=== PATIENT | female | born 2000 | race Hispanic/Latino ===

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

== ENCOUNTER 2019-04-08 17:14 | Emergency (ER) | payer MEDICAID, OTHER ==
[2019-04-08] MEDS ORDERED: ACETAMINOPHEN EXTRA STRENGTH 500 MG TABLET ONE (17:27)
== END 2019-04-08 18:32 | disposition home or self-care (01) ==
LOC: EDH 17:14
DX: S93.692A Other sprain of left foot, initial encounter (principal); J45.909 Unspecified asthma, uncomplicated; X50.0XXA Overexertion from strenuous movement or load, initial encounter; Y93.89 Activity, other specified; Y92.488 Other paved roadways as the place of occurrence of the external cause; Y99.8 Other external cause status
CPT/HCPCS: 73630

== ENCOUNTER 2024-05-09 20:13 | Emergency (ER) | payer MEDICAID ==
[~2024-05-09] VITALS: Ht 152.4 cm; Wt 87.7 kg
[2024-05-09] MEDS ORDERED: DiphenhydrAMINE HCL 25 MG CAPSULE PO STA (20:32)
[2024-05-09] MEDS: FAMOTIDINE 20MG VIAL IV ONE (20:56)
[2024-05-09] MEDS: DiphenhydrAMINE HCL 50 MG/ML VIAL IV ONE (20:57)
[2024-05-09 21:04] LABS: BASOPHILS # (AUTO) 0.01 K/uL (0.00-0.20); BASOPHILS % (AUTO) 0.2 % (0.0-5.0); EOSINOPHILS % (AUTO) 1.7 % (0.0-8.0); IMMATURE GRANULOCYTE ABSOLUTE 0.02 K/uL (0-1); LYMPHOCYTES # (AUTO) 1.7 K/uL (1.0-4.8); LYMPHOCYTES % (AUTO) 28.8 % (21.0-51.0); MEAN CORPUSCULAR HEMOGLOBIN 30.8 pg (27.0-33.0); MEAN CORPUSCULAR HGB CONC 33.3 g/dL (32.0-36.0); MEAN CORPUSCULAR VOLUME 92.6 fL (79-99); MONOCYTES # (AUTO) 0.5 K/uL (0.1-1.0); MONOCYTES % (AUTO) 8.3 % (3.0-13.0); NEUTROPHILS # (AUTO) 3.6 K/uL (1.8-7.7); NEUTROPHILS % (AUTO) 60.7 % (40.0-77.0); PLATELET COUNT (AUTO) 227 K/uL (130-400); RED BLOOD CELL COUNT(AUTO) 4.32 MIL/uL (4.00-5.50); RED CELL DISTRIBUTION WIDTH 11.9 % (11.0-15.5); WHITE BLOOD COUNT (AUTO) 5.9 K/uL (4.8-10.8)
[2024-05-09 21:12] LABS: CREATININE 0.8 mg/dL (0.5-1.0); POTASSIUM 3.8 mmol/L (3.5-5.1)
[2024-05-09 21:20] LABS: ALBUMIN 3.5 g/dL (3.5-5.0); BILIRUBIN,DIRECT 0.1 mg/dL (0.0-0.3); BILIRUBIN,TOTAL 0.2 mg/dL (0.2-1.0); TOTAL PROTEIN, SERUM 7.4 g/dL (6.0-8.3)
[2024-05-09] MEDS ORDERED: DIPH50 PO (21:35)
--- NOTE | 2024-05-09 21:37 | ERN ---
ED Note History of Present Illness Stated Complaint: BLISTERS TO HANDS AND MOUTH Chief Complaint: Skin Rash/Abscess Time Seen by MD: 20:16 Time Seen by Midlevel: 20:19 Dictation: 23-year-old female with past medical history of asthma and leukemia in when she was in high school coming in with complaints of itchy rash to the palms of her hand and soles of her foot along with petechiae along the mouth. Also complaining of throat pain. Patient denies being recently sick, denies any fever, nausea, vomiting, body aches. States her liver month old baby also has a same rash to his calves. States she has been applying Aquaphor in his seen some improvement on her baby. Allergies: Coded Allergies: No Known Allergies (Unverified Allergy, Unknown, 05/09/24) Past Medical History Past Medical History: Asthma Surgical History: None LMP: May 05, 2024 Review of System Dictation Constitutional: Negative for fever,chills, and weight loss Eyes: Negative for injury, pain,redness, and discharge ENT: Negative for injury,pain or swelling Cardiovascular: Negative for chest pain, palpitations, and edema Respiratory: Negative for shortness of breath, cough, and wheezing, Abdomen/GI: Negative for abdominal pain, nausea, vomiting, diarrhea, and constipation Back: Negative for injury and pain : Negative for injury, bleeding and discharge MS/Extremity: Negative for injury and deformity Skin: Rash to palms of bilateral hands and also foot along with lesions in the mouth Neuro: Negative for headache, weakness, numbness, tingling, and seizure Psych: Negative for suicide ideation, homicidal ideation, and hallucinations Review of Systems: was completed Initial Vital Sign VS Vital Signs Date Time Temp Pulse Resp B/P (MAP) Pulse Ox O2 Delivery O2 Flow Rate FiO2 05/09/24 20:14 98.8 82 18 121/86 99 Room Air Physical Exam Dictation General: awake, alert, NAD Head/Face: Normocephalic, atraumatic Eyes: PERRL, EOMI, vision at baseline ENT: oral cavity clear, TMs clear, no signs of infection Neck: Trachea midline, supple, no nuchal rigidity Cardiovascular: RRR, normal S1/S2, No MRGs, no JVD Respiratory: CTAB, no respiratory distress, No rales or wheezes Abdomen: Soft, non-tender, non-distended, normal bowel sounds, no guarding or rebound. Skin: Small, slight red spots on the palms, is soles of foot. MS/Extremity: Pulses equal, no cyanosis, neurovascular intact, FROM Neuro: COAx4, GCS 15, strength 5/5, CN 2-12 intact, normal cerebellar exam, normal gait, Psych: Normal behavior, mood, and affect normal Results (Laboratory/Radiology) Laboratory/Radiology Laboratory Tests Test 05/09/24 20:33 05/09/24 20:53 Group A Streptococcus Rapid negative (NEGATIVE) White Blood Count 5.9 K/uL (4.8-10.8) Red Blood Count 4.32 MIL/uL (4.00-5.50) Hemoglobin 13.3 g/dL (12.0-16.0) Hematocrit 40.0 % (36-48) Mean Corpuscular Volume 92.6 fL (79-99) Mean Corpuscular Hemoglobin 30.8 pg (27.0-33.0) Mean Corpuscular Hemoglobin Concent 33.3 g/dL (32.0-36.0) Red Cell Distribution Width 11.9 % (11.0-15.5) Platelet Count 227 K/uL (130-400) Mean Platelet Volume 10.3 fL (7.5-10.5) Immature Granulocyte % (Auto) 0.3 % (0-1) Neutrophils (%) (Auto) 60.7 % (40.0-77.0) Lymphocytes (%) (Auto) 28.8 % (21.0-51.0) Monocytes (%) (Auto) 8.3 % (3.0-13.0) Eosinophils (%) (Auto) 1.7 % (0.0-8.0) Basophils (%) (Auto) 0.2 % (0.0-5.0) Neutrophils # (Auto) 3.6 K/uL (1.8-7.7) Lymphocytes # (Auto) 1.7 K/uL (1.0-4.8) Monocytes # (Auto) 0.5 K/uL (0.1-1.0) Eosinophils # (Auto) 0.10 K/uL (0.00-0.70) Basophils # (Auto) 0.01 K/uL (0.00-0.20) Absolute Immature Granulocyte (auto 0.02 K/uL (0-1) Nucleated Red Blood Cells 0.0 % (0.0-0.19) Sodium Level 138 mmol/L (136-145) Potassium Level 3.8 mmol/L (3.5-5.1) Chloride Level 102 mmol/L (101-111) Carbon Dioxide Level 30 mmol/L (21-32) Blood Urea Nitrogen 15 mg/dL (7-18) Creatinine 0.8 mg/dL (0.5-1.0) Glomerular Filtration Rate Calc 105 mL/min (>90) Random Glucose 100 mg/dL (70-105) Total Calcium 8.7 mg/dL (8.5-10.1) Total Bilirubin 0.2 mg/dL (0.2-1.0) Direct Bilirubin 0.1 mg/dL (0.0-0.3) Aspartate Amino Transf (AST/SGOT) 18 U/L (10-37) Alanine Aminotransferase (ALT/SGPT) 27 U/L (12-78) Alkaline Phosphatase 86 U/L (50-136) Total Protein 7.4 g/dL (6.0-8.3) Albumin 3.5 g/dL (3.5-5.0) Labs Reviewed?: Yes ED Course ED Course Orders Procedure Category Date Status Time Rapid (Group A Strep) LAB 05/09/24 Complete 20:29 Diphenhydramine Hcl PHA 05/09/24 Complete (Benadryl Cap) 20:32 Cbc With Differential LAB 05/09/24 Complete 20:45 Basic Metabolic Panel LAB 05/09/24 Complete 20:45 Diphenhydramine Hcl PHA 05/09/24 Complete (Benadryl Inj) 21:00 Famotidine 20mg Vial PHA 05/09/24 Complete (Pepcid 20mg Vial) 21:00 Hepatic Function Panel LAB 05/09/24 Complete 20:53 Current Medications Medications (Trade) Dose Ordered Sig/Darin Route PRN Reason Start Time Stop Time Status Last Admin Dose Admin Diphenhydramine HCl (BENAdryl CAP) 50 mg ONCE STAT PO 05/09/24 20:32 05/09/24 20:49 DC Diphenhydramine HCl (BENAdryl INJ) 25 mg ONCE ONCE IV 05/09/24 21:00 05/09/24 21:01 DC 05/09/24 20:57 Famotidine (Pepcid 20mg Vial) 20 mg ONCE ONCE IV 05/09/24 21:00 05/09/24 21:01 DC 05/09/24 20:56 Vital Signs Date Time Temp Pulse Resp B/P (MAP) Pulse Ox O2 Delivery O2 Flow Rate FiO2 05/09/24 20:14 98.8 82 18 121/86 99 Room Air Medical Decision Making MDM MDM: 23-year-old female with past medical history of asthma and leukemia in when she was in high school coming in with complaints of itchy rash to the palms of her hand and soles of her foot along with petechiae along the mouth. Also complaining of throat pain. Patient denies being recently sick, denies any fever, nausea, vomiting, body aches. States her liver month old baby also has a same rash to his calves. States she has been applying Aquaphor in his seen some improvement on her baby. After Benadryl and Pepcid, patient states feels better. We will discharge patient with Benadryl and follow up with PCP in 1-2 days.. Differential diagnosis: Jray-[id number]-[id number] disease, scabies, viral rash, t hrombocytopenia Rationale: Tests considered and ordered secondary to shared decision making include: Previous outside records reviewed: Old ER visits. Risk of complication and/or morbidity or mortality of patient management: None Medications-Per medication reconciliation Need for hospitalization: Patient does not meet criteria for hospitalization. Need for emergency major/minor surgery: No There are no social concerns with this patient. Prescription drug management Prescriptions will include symptomatic care Patient's prior external medical records from other ER visits were reviewed by me as indicated. Prior testing and results from previous visits were reviewed. Prior tests were taken into account with medical decision making and resource utilization, independent historian/historians were used to obtain complete medical history. I independently interpreted the test that were performed, results were reviewed by me and considered findings on radiology if ordered. Medical management and examination interpretation discussions were had by me with other qualified healthcare professionals as indicated for the patient's care. DX & DISP Disposition: Discharge Departure Impression: Primary Impression: Hand, foot and mouth disease Condition: Stable Scripts Diphenhydramine HCl (Benadryl) 50 Mg Cap 50 MG PO Q6H for itching/rash for 5 Days, #20 CAP 0 Refills Prov: WEST,TABITHA JBOSS DEVELOPER 05/09/24 Referrals: SASHA FRANK DO (PCP) Time of Disposition: 21:35 I have reviewed the case, and I agree with, Diagnosis and Plan TABITHA WEST NP May 09, 2024 21:37
[2024-05-09 21:44] VITALS: BP 122/83; PULSE 80; RESP 18; TEMP 98.5; O2SAT 99
== END 2024-05-09 21:45 | disposition home or self-care (01) ==
LOC: EDH 20:13
DX: B08.4 Enteroviral vesicular stomatitis with exanthem (principal); J45.909 Unspecified asthma, uncomplicated
CPT/HCPCS: 99284; 96374; 96375; 80076; 80048; 85025; 87880; 36415; J1200; J3490

== ENCOUNTER 2025-01-04 22:07 | Emergency (ER) | payer SELFPAY ==
[~2025-01-04] VITALS: Ht 152.4 cm; Wt 76.7 kg
[~2025-01-04 22:07] MED LIST: DIPH50 PO
--- NOTE | 2025-01-04 22:10 | NUR ---
UA CUP PROVIDED
[2025-01-04 22:31] VITALS: BP 130/80; PULSE 90; RESP 16; TEMP 98.1; O2SAT 98
[2025-01-04 22:40] LABS: ADD UA MICROSCOPIC YES; APPEARANCE,URINE CLOUDY (CLEAR); GLUCOSE, URINE (UA) NEGATIVE (NEGATIVE); LEUKOCYTE ESTERASE ,URINE 500 Leu/uL (NEGATIVE); NITRATE,URINE NEGATIVE (NEGATIVE); OCCULT BLOOD,URINE SMALL (NEGATIVE)
[2025-01-04 22:41] LABS: HCG,QUALITATIVE URINE NEGATIVE (NEGATIVE)
[2025-01-04 22:43] LABS: SQUAMOUS EPITHELIAL CELL,UR MOD /HPF (0-2)
--- NOTE | 2025-01-04 23:08 | ERN ---
ED Note History of Present Illness Stated Complaint: VAGINAL WHITE DISCHARGE, ITCHING Chief Complaint: Vaginal Problems/Bleeding Time Seen by MD: 22:18 Time Seen by Midlevel: 22:18 Dictation: The patient is a 24-year-old female with a history of asthma who presents to the emergency department with white clumpy non odorous vaginal discharge associated with burning urination and itchiness. Patient denies any fevers, nausea vomiting or diarrhea. Allergies: Coded Allergies: No Known Allergies (Unverified Allergy, Unknown, 05/09/24) Home Meds Active Scripts Diphenhydramine HCl (Benadryl) 50 Mg Cap, 50 MG PO Q6H for itching/rash for 5 Days, #20 CAP 0 Refills Prov:TABITHA WEST NP 05/09/24 Past Medical History Past Medical History: No Pertinent History, Asthma Surgical History: None RN Note Reviewed/Agreed w/PFSH: Yes Review of System Dictation Constitutional: Negative for fever,chills, and weight loss Eyes: Negative for injury, pain,redness, and discharge ENT: Negative for injury,pain or swelling Cardiovascular: Negative for chest pain, palpitations, and edema Respiratory: Negative for shortness of breath, cough, and wheezing, Abdomen/GI: Negative for abdominal pain, nausea, vomiting, diarrhea, and constipation Back: Negative for injury and pain : Positive for vaginal discharge, burning urination MS/Extremity: Negative for injury and deformity Skin: Negative for rash, and discoloration Neuro: Negative for headache, weakness, numbness, tingling, and seizure Psych: Negative for suicide ideation, homicidal ideation, and hallucinations Initial Vital Sign VS Vital Signs Date Time Temp Pulse Resp B/P (MAP) Pulse Ox O2 Delivery O2 Flow Rate FiO2 01/04/25 22:09 98.1 92 18 130/81 99 Room Air 01/04/25 22:31 0 21 Physical Exam Dictation Vital Signs reviewed General Appearance: Alert, oriented x 3, no acute distress, well developed, nourished. Head and Face: non-traumatic. Eyes: PERRL, pink conjunctivas, eyelid no trauma, anterior chamber with arcus senilis. Ears: Pinnas intact and no signs of trauma or erythema ear canals clear and no discharge TM no erythema Nose: No discharge, no bleeding. Oropharynx: Mouth normal, tongue pink. pharynx clear,no erythema, tonsils no exudates, no abscesses noted, mucous membrane moist Neck: Supple, non-tender, no thyromegaly, no masses, no JVD, no bruits Breast:Deferred Chest:No tenderness, no crepitus, no paradoxical movement, no retractions Lungs:Clear, well-ventilated, symmetric, no rales, no wheezing, no rhonchi, no stridor, good breath sounds bilaterally Heart: Regular rate, regular rhythm, no murmur, no gallops Vascular: no peripheral edema, Abdomen: Soft, positive bowel sounds, nondistended, no guarding, nontender, no rebound, no masses no hepatomegaly, no splenomegaly, no Pillai's sign, no hernias. Rectal: Deferred Genital: Deferred Neurological: Normal speech, motor function intact, sensory function intact Musculoskeletal: Neck nontender, full range of motion, back nontender, full range of motion, Extremities: nontender, full range of motion Skin: Color pink, dry, no turgor, no rash, no lacerations, no abrasions, no contusions. Lymphatic: Deferred Results (Laboratory/Radiology) Laboratory/Radiology Laboratory Tests Test 01/04/25 22:30 Urine Color YELLOW (YELLOW) Urine Appearance CLOUDY (CLEAR) H Urine pH 5.5 (5.0-8.0) Urine Specific [place] 1.029 (1.001-1.031) Urine Protein 30 mg/dL (NEGATIVE) H Urine Glucose (UA) NEGATIVE mg/dL (NEGATIVE) Urine Ketones NEGATIVE mg/dL (NEGATIVE) Urine Occult Blood SMALL (NEGATIVE) H Urine Nitrate NEGATIVE (NEGATIVE) Urine Bilirubin NEGATIVE mg/dL (NEGATIVE) Urine Urobilinogen 0.2 mg/dL (0.2-1.0) Urine Leukocyte Esterase 500 Vidhya/uL (NEGATIVE) H Urine RBC 26-50 /HPF (0-1) H Urine WBC TNTC /HPF (0-1) H Urine Squamous Epithelial Cells MOD /HPF (0-2) Urine Bacteria RARE /HPF (None Seen) Urine HCG, Qualitative NEGATIVE (NEGATIVE) Labs Reviewed?: Yes ED Course ED Course Orders Procedure Category Date Status Time Urinalysis Profile LAB 01/04/25 Complete 22:25 ,Urine Test LAB 01/04/25 Complete 22:25 Culture Urine COCO 01/04/25 In Process 22:40 Ceftriaxone 1g Vial PHA 01/04/25 Complete (Rocephine 1g Inj) 23:00 Current Medications Medications (Trade) Dose Ordered Sig/Darin Route PRN Reason Start Time Stop Time Status Last Admin Dose Admin Ceftriaxone Sodium (ROCEphine 1G INJ) 1 gm ONCE ONCE IM 01/04/25 23:00 01/04/25 23:01 DC 01/04/25 22:59 Vital Signs Date Time Temp Pulse Resp B/P (MAP) Pulse Ox O2 Delivery O2 Flow Rate FiO2 01/04/25 22:31 98.1 90 16 130/80 98 Room Air* 0 21 01/04/25 22:09 98.1 92 18 130/81 99 Room Air Medical Decision Making MDM The patient is a 24-year-old female with a history of asthma who presents to the emergency department with white clumpy non odorous vaginal discharge associated with burning urination and itchiness. Patient denies any fevers, nausea vomiting or diarrhea. Urinalysis positive for leukocyte esterase. Patient will be received a dose of Rocephin in ER. Patient with white non odorous clumpy discharge consistent with Jayda vulvovaginitis. We will treat patient. On physical exam patient is in no acute distress, nontoxic appearance Differential diagnosis: UTI, yeast infection, Need for hospitalization: Patient does not meet criteria for hospitalization. There are no social concerns with this patient. DX & DISP Disposition: Discharge Departure Impression: Primary Impression: Vaginal yeast infection Additional Impression: UTI (urinary tract infection) Condition: Stable Scripts Nitrofurantoin Monohyd/M-Cryst (Macrobid 100 mg Capsule) 100 Mg Capsule 1 CAP PO BID for 5 Days, #10 CAP 0 Refills Prov: GIULIANA AKERS LPTA 01/04/25 Miconazole Nitrate (Monistat 3 Vag Supp) 200 Mg Supp 200 MG VG DAILY for 3 Days, #3 SUPP Prov: GIULIANA AKERS LPTA 01/04/25 Additional Instructions: Please take your medications as prescribed. Follow up with your primary doctor in 1-2 days. If anything worsens please return to ER. FOLLOW-UP WITH PRIMARY CARE PROVIDER IN 1 TO 2 DAYS. TAKE MEDICATIONS DIRECTED HERE IN THE EMERGENCY ROOM. OKAY TO CONTINUE HOME MEDICATIONS UNLESS OTHERWISE DISCUSSED DURING YOUR VISIT IN THE EMERGENCY ROOM TODAY. RETURN TO YOUR NEAREST EMERGENCY ROOM IF SYMPTOMS WORSEN OR IF THERE IS NO IMPROVEMENT. CALL 911 IF YOU NEED IMMEDIATE ASSISTANCE. TAKE TYLENOL [id number] NE EDED AND IF NO CONTRAINDICATIONS ARE PRESENT. INCREASE ORAL HYDRATION. A WOUND CULTURE OR URINE CULTURE WAS ORDERED HERE IN THE EMERGENCY ROOM DEPARTMENT PLEASE FOLLOW-UP WITH PRIMARY CARE PROVIDER AND ADVISE THEM TO GET REPEAT PORTS FROM OUR FACILITY. IF YOU HAD ANY KAREN WRAP/SPLINTS THAT WERE APPLIED HERE, PLEASE DO NOT REMOVE THEM UNTIL YOU SEE YOUR PRIMARY CARE OR SPECIALTY. Referrals: JACK MCFADDEN (PCP) Time of Disposition: 23:10 I have reviewed the case, and I agree with, Diagnosis and Plan GIULIANA AKERS [facility] Jan 04, 2025 23:08
[2025-01-04] MEDS ORDERED: MICO200S VG (23:14)
[2025-01-04] MEDS ORDERED: NITR100C4 PO (23:14)
== END 2025-01-04 23:24 | disposition home or self-care (01) ==
LOC: EDH 22:07
DX: B37.31 Acute candidiasis of vulva and vagina (principal); N39.0 Urinary tract infection, site not specified; Z79.899 Other long term (current) drug therapy
CPT/HCPCS: 99283; 87086 ×2; 87186; 81001; 81025; 96372; J0696

== ENCOUNTER 2025-03-20 00:59 | Emergency (ER) | payer SELFPAY ==
[~2025-03-20] VITALS: Ht 152.4 cm; Wt 79.4 kg
[~2025-03-20 00:59] MED LIST changes: -DIPH50 PO; +DIPH50CA38 PO; +MICO200S VG; +NITR100C4 PO
--- NOTE | 2025-03-20 01:28 | NUR ---
PT CARE ASSUMED AT THIS TIME
--- NOTE | 2025-03-20 01:29 | ERN ---
ED Note History of Present Illness Stated Complaint: C/O BACK PAIN WITH CP X 2 DAYS Chief Complaint: Back Pain-No Injury Time Seen by MD: 01:16 Dictation: This is a 24-year-old obese female who presented to the emergency room with complaints of epigastric pain associated with nausea and when the pain is very severe she also reported vomitings. All these have been going on for about 3 days so far she denied any hematemesis or melena she also reported some loose stools and stated that she had 6 loose stools today. No other family members are sick. No fever chills or rigors She describes that the pain starts in the substernal epigastric area and radiates all the way to the back. She does give a history of burping but denied any sour eructations. Temperature 97.1 pulse 71 respirations 20 blood pressure 141/84 with a pulse oximetry of 100% on room air Allergies: Coded Allergies: No Known Allergies (Unverified Allergy, Unknown, 05/09/24) Home Meds Active Scripts Nitrofurantoin Macrocrystal (Nitrofurantoin) 100 Mg Capsule, 1 CAP PO BID for 7 Days, #14 CAP 0 Refills Prov:BONNY HUBER MD 03/20/25 Nitrofurantoin Monohyd/M-Cryst (Macrobid 100 mg Capsule) 100 Mg Capsule, 1 CAP PO BID for 5 Days, #10 CAP 0 Refills Prov:GIULIANA AKERS [facility] 01/04/25 Miconazole Nitrate (Monistat 3 Vag Supp) 200 Mg Supp, 200 MG VG DAILY for 3 Days, #3 SUPP Prov:GIULIANA AKERS [facility] 01/04/25 Diphenhydramine HCl (Benadryl) 50 Mg Cap, 50 MG PO Q6H for itching/rash for 5 Days, #20 CAP 0 Refills Prov:TABITHA WEST [facility] 05/09/24 Past Medical History Past Medical History: Asthma Surgical History: None Family History: Negative Social History: Negative RN Note Reviewed/Agreed w/PFSH: Yes Review of System Dictation Constitutional: Negative for fever,chills, and weight loss Eyes: Negative for injury, pain,redness, and discharge ENT: Negative for injury,pain or swelling Cardiovascular: Negative for chest pain, palpitations, and edema Respiratory: Negative for shortness of breath, cough, and wheezing, Abdomen/GI: Positive for epigastric abdominal pain, nausea, vomiting, diarrhea, Back: Negative for injury and pain : Negative for injury, bleeding and discharge MS/Extremity: Negative for injury and deformity Skin: Negative for rash, and discoloration Neuro: Negative for headache, weakness, numbness, tingling, and seizure Psych: Negative for suicide ideation, homicidal ideation, and hallucinations Initial Vital Sign VS Vital Signs Date Time Temp Pulse Resp B/P (MAP) Pulse Ox O2 Delivery O2 Flow Rate FiO2 03/20/25 01:01 97.2 71 20 141/84 100 Room Air 03/20/25 01:29 0 21 Physical Exam Dictation General: awake, alert, NAD obese female Head/Face: Normocephalic, atraumatic Eyes: PERRL, EOMI, vision at baseline ENT: oral cavity clear, TMs clear, no signs of infection Neck: Trachea midline, supple, no nuchal rigidity Cardiovascular: RRR, normal S1/S2, No MRGs, no JVD Respiratory: CTAB, no respiratory distress, No rales or wheezes Abdomen: Soft, mild tenderness in the epigastric area, non-distended, normal bowel sounds, no guarding or rebound. Skin: Warm, dry, normal turgor, no rash MS/Extremity: Pulses equal, no cyanosis, neurovascular intact, FROM Neuro: COAx4, GCS 15, strength 5/5, CN 2-12 intact, normal cerebellar exam, normal gait, Psych: Normal behavior, mood, and affect normal Extremities-trace edema without any palpable cords, Homans sign is negative Results (Laboratory/Radiology) Laboratory/Radiology Laboratory Tests Test 03/20/25 02:05 Urine Color LIGHT-YELLOW (YELLOW) Urine Appearance CLOUDY (CLEAR) H Urine pH 6.0 (5.0-8.0) Urine Specific [place] 1.030 (1.001-1.031) Urine Protein NEGATIVE mg/dL (NEGATIVE) Urine Glucose (UA) NEGATIVE mg/dL (NEGATIVE) Urine Ketones NEGATIVE mg/dL (NEGATIVE) Urine Occult Blood NEGATIVE (NEGATIVE) Urine Nitrate NEGATIVE (NEGATIVE) Urine Bilirubin NEGATIVE mg/dL (NEGATIVE) Urine Urobilinogen 0.2 mg/dL (0.2-1.0) Urine Leukocyte Esterase 500 Vidhya/uL (NEGATIVE) H Urine RBC 2-5 /HPF (0-1) H Urine WBC 11-25 /HPF (0-1) H Urine Squamous Epithelial Cells MANY /HPF (0-2) Urine Bacteria MOD /HPF (None Seen) Urine HCG, Qualitative NEGATIVE (NEGATIVE) Labs Reviewed?: Yes ED Course ED Course Orders Procedure Category Date Status Time 12 Lead Ekg Tracing- EKG 03/20/25 Complete Technical 01:33 Ondansetron 4mg Inj PHA 03/20/25 Complete (Zofran 4mg Inj) 02:00 Chest 1vw RAD 03/20/25 Taken 01:33 Morphine 4mg Syg PHA 03/20/25 Complete (Morphine 4mg Syg) 02:00 Urinalysis Profile LAB 03/20/25 Complete 01:46 ,Urine Test LAB 03/20/25 Complete 01:46 Culture Urine COCO 03/20/25 In Process 02:20 Current Medications Medications (Trade) Dose Ordered Sig/Darin Route PRN Reason Start Time Stop Time Status Last Admin Dose Admin Morphine Sulfate (morPHINE 4MG SYG) 2 mg ONCE ONCE IVP 03/20/25 02:00 03/20/25 02:01 DC 03/20/25 02:11 Ondansetron HCl (zoFRAN 4MG INJ) 4 mg ONCE ONCE IVP 03/20/25 02:00 03/20/25 02:01 DC 03/20/25 02:11 Vital Signs Date Time Temp Pulse Resp B/P (MAP) Pulse Ox O2 Delivery O2 Flow Rate FiO2 03/20/25 01:29 97.9 84 17 148/82 100 Room Air* 0 21 03/20/25 01:01 97.2 71 20 141/84 100 Room Air We will perform diagnostic labs, advanced imaging and administer medications according to the patient's complaint. Once the results are available, will review and personally interpreted the labs to rule out any acute life-thre atening emergency the trach require immediate intervention and treatment. I will then re-evaluate the patient after treatment and diagnostic exams have return to determine whether the patient requires any further testing, can safely be discharged home or need further admission to hospital for additional treatment and evaluation. Medical Decision Making MDM Differential diagnosis: Gastritis, esophagitis, gastroenteritis, pancreatitis, colitis, cholecystitis This is a 24-year-old obese female who presented to the emergency room with complaints of epigastric pain associated with nausea and when the pain is very severe she also reported vomitings. All these have been going on for about 3 days so far she denied any hematemesis or melena she also reported some loose stools and stated that she had 6 loose stools today. No other family members are sick. No fever chills or rigors She describes that the pain starts in the substernal epigastric area and radiates all the way to the back. She does give a history of burping but denied any sour eructations. Temperature 97.1 pulse 71 respirations 20 blood pressure 141/84 with a pulse oximetry of 100% on room air 2:30 a.m. urinalysis showed increased leuko esterase and positive WBCs suggestive of a UTI. Urine test negative. Chest x-ray pending 2:55 a.m. chest x-ray reviewed. No acute infiltrate noted no pneumothorax. No mediastinal widening. On reassessment patient admits to feeling significantly improved. I updated her on the test results as well as x-ray results and possible UTI and a trial of antibiotic as outpatient. Rationale: Tests considered and ordered secondary to shared decision making include: Chest x-ray urinalysis and urine test Previous outside records reviewed: Old ER visits. Risk of complication and/or morbidity or mortality of patient management: None Medications-Per medication reconciliation Need for hospitalization: Patient does not meet criteria for hospitalization. Need for emergency major/minor surgery: No There are no social concerns with this patient. Prescription drug management Prescriptions will include symptomatic care Patient's prior external medical records from other ER visits were reviewed by erasmo hanson as indicated. Prior testing and results from previous visits were reviewed. Prior tests were taken into account with medical decision making and resource utilization, independent historian/historians were used to obtain complete medical history. I independently interpreted the test that were performed, results were reviewed by me and considered findings on radiology if ordered. Medical management and examination interpretation discussions were had by me with other qualified healthcare professionals as indicated for the patient's care. Problem List Problem List: (1) Gastroenteritis (2) Gastritis (3) Hiatal hernia (4) UTI (urinary tract infection) DX & DISP Disposition: Discharge Departure Impression: Primary Impression: Gastritis Additional Impressions: Hiatal hernia, UTI (urinary tract infection), Gastroenteritis Condition: Stable Scripts Nitrofurantoin Macrocrystal (Nitrofurantoin) 100 Mg Capsule 1 CAP PO BID for 7 Days, #14 CAP 0 Refills Prov: BONNY HUBER MD 03/20/25 Additional Instructions: Patient and the caregiver have been informed of all the diagnostic tests and the imaging conducted during the today's visit to the emergency room and has librado balized understanding of the results I have personally reviewed and interpreted all diagnostic exams performed here in the ER today as well as the vital signs documented by the nursing staff. The patient is now being discharged to home and should follow up with the primary care physician or the specialist as directed by the ER staff. Referrals: JACK MCFADDEN (PCP) BONNY HUBER MD Mar 20, 2025 01:29
--- NOTE | 2025-03-20 02:00 | EKG ---
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
[2025-03-20 02:13] LABS: APPEARANCE,URINE CLOUDY (CLEAR); GLUCOSE, URINE (UA) NEGATIVE (NEGATIVE); LEUKOCYTE ESTERASE ,URINE 500 Leu/uL (NEGATIVE); NITRATE,URINE NEGATIVE (NEGATIVE); OCCULT BLOOD,URINE NEGATIVE (NEGATIVE)
[2025-03-20 02:20] LABS: ADD UA MICROSCOPIC YES
[2025-03-20 02:22] LABS: SQUAMOUS EPITHELIAL CELL,UR MANY /HPF (0-2)
[2025-03-20 02:24] LABS: HCG,QUALITATIVE URINE NEGATIVE (NEGATIVE)
[2025-03-20] MEDS ORDERED: NITR100C PO (02:32)
[2025-03-20 03:22] VITALS: BP 116/65; PULSE 66; RESP 15; TEMP 97.8; O2SAT 100
--- NOTE | 2025-03-20 03:46 | HMCIMG ---
EXAM: CR Chest, 1 view CLINICAL HISTORY: Substernal COMPARISON: None provided. FINDINGS: The lungs show no infiltrates or other acute findings. No pleural effusion or pneumothorax. The cardiomediastinal silhouette is within normal limits. No acute osseous abnormality. IMPRESSION: No acute cardiopulmonary process is evident. /[place]
== END 2025-03-20 03:31 | disposition home or self-care (01) ==
LOC: EDH 00:59
DX: K29.70 Gastritis, unspecified, without bleeding (principal); N39.0 Urinary tract infection, site not specified; K44.9 Diaphragmatic hernia without obstruction or gangrene; K52.9 Noninfective gastroenteritis and colitis, unspecified; R11.2 Nausea with vomiting, unspecified; E66.9 Obesity, unspecified; J45.909 Unspecified asthma, uncomplicated; Z68.34 Body mass index [BMI] 34.0-34.9, adult
CPT/HCPCS: 99285; 96374; 71045; 96375; 87086; 81001; 81025; 93005; J2405; J2270

== ENCOUNTER 2025-05-22 08:03 | Inpatient (IN) | payer SELFPAY ==
[~2025-05-22] VITALS: Ht 152.4 cm; Wt 83.0 kg
[2025-05-22] MEDS: 0.9%NACL 1000ML 1,000 ML IV ONE (08:53)
[2025-05-22 08:55] LABS: IMMATURE GRANULOCYTE ABSOLUTE 0.02 K/uL (0-1); NUCLEATED RED BLOOD CELLS 0.0 % (0.0-0.19); PLATELET COUNT (AUTO) 283 K/uL (130-400); RED BLOOD CELL COUNT(AUTO) 4.86 MIL/uL (4.00-5.50); RED CELL DISTRIBUTION WIDTH 11.9 % (11.0-15.5); WHITE BLOOD COUNT (AUTO) 6.8 K/uL (4.8-10.8)
--- NOTE | 2025-05-22 08:58 | ERN ---
General Chief Complaint: Shortness of Breath Stated Complaint: SOB Time Seen by MD: 08:11 Source: patient History of Present Illness Initial Comments Patient is a 25-year-old female coming in complaining of right upper quadrant and epigastric pain. Per patient this has been ongoing for two days. She states that she has a similar episode in the past was evaluated and was not f ound having abnormalities. She has not followed up with the primary care after the 1st evaluation in the ER. Allergies: Coded Allergies: No Known Allergies (Unverified Allergy, Unknown, 05/09/24) Home Meds Active Scripts Nitrofurantoin Macrocrystal (Nitrofurantoin) 100 Mg Capsule, 1 CAP PO BID for 7 Days, #14 CAP 0 Refills Prov:BONNY HUBER MD 03/20/25 Nitrofurantoin Monohyd/M-Cryst (Macrobid 100 mg Capsule) 100 Mg Capsule, 1 CAP PO BID for 5 Days, #10 CAP 0 Refills Prov:GIULIANA AKERS GLASS INSTALLER TECHNICIAN 01/04/25 Miconazole Nitrate (Monistat 3 Vag Supp) 200 Mg Supp, 200 MG VG DAILY for 3 Days, #3 SUPP Prov:GIULIANA AKERS GLASS INSTALLER TECHNICIAN 01/04/25 Diphenhydramine HCl (Benadryl) 50 Mg Cap, 50 MG PO Q6H for itching/rash for 5 Days, #20 CAP 0 Refills Prov:TABITHA WEST CNP 05/09/24 Past Medical History Past Medical History: Anxiety, Asthma Past Surgical History: None Family History Family History: Negative Social History Social History: Negative ROS Dictation CONSTITUTIONAL: No chills, no fever, no weakness, no diaphoresis, no malaise. HEAD/FACE: No signs of trauma. EENT: No eye pain, no blurred vision, no tearing, no double vision, no ear pain , no ear discharge, no nose pain, no nasal congestion, no throat pain, no throat swelling, no mouth pain. RESPIRATORY: No cough, no orthopnea, no SOB, no stridor, no wheezing. CARDIOVASCULAR: chest pain, no edema, no palpitations, no syncope. GASTROINTESTINAL/ABDOMINAL: No abdominal pain, no constipation, no diarrhea, no nausea, no vomiting. GENITOURINARY: abnormal discharge, no dysuria, no frequent urination, no hematuria. No complaints of pain in the genitals. MUSCULOSKELETAL: No back pain, no gout, no joint pain, no joint swelling, no muscle pain, no muscle stiffness, no neck pain. INTEGUMENTARY: No change in color, no change in hair/nails, no dryness, no lesion, no lumps, no rash. NEUROLOGICAL/PSYCH: No anxiety, not depressed, no emotional problem, no headache, no numbness, no pre-existing deficit, no history of seizures, no tremors, no weakness. HEMATOLOGIC/LYMPHATIC: Not anemic, no history of blood clots, no apparent bleeding, no bruising, glands not swollen. All Systems Negative, Except as Noted. Physical Exam Physical Exam Dictation VITAL SIGNS: Reviewed. GENERAL APPEARANCE: Alert, oriented x3, no acute distress, obese. HEAD AND FACE: Non-traumatic. EYES: PERRL, pink conjunctivas, eyelid no trauma, anterior chamber clear. EARS: Pinnas intact and no signs of trauma or erythema. Ear canals clear and no discharge. TMs no erythema. NOSE: No discharge, no bleeding. OROPHARYNX: Mouth normal, teeth no caries, tongue pink. Pharynx clear, no erythema. Tonsils no exudates, no abscesses noted. Mucous membrane moist. NECK: Supple, non-tender, no thyromegaly, no masses, no JVD, no bruits. BREAST: Deferred. CHEST: No tenderness, no crepitus, no paradoxical movement, no retractions. LUNGS: Clear, well-ventilated, symmetric, no rales, no wheezing, no rhonchi, no stridor, good breath sounds bilaterally. HEART: Regular rate, regular rhythm, no murmur, no gallops. VASCULAR: No peripheral edema. ABDOMEN: Soft, positive bowel sounds, nondistended, no guarding, ruq tender, no rebound, no masses no hepatomegaly, no splenomegaly, no Pillai's sign, no hernias. RECTAL: Deferred. GENITAL: Deferred. NEUROLOGICAL: Normal speech, gross motor function intact, gross sensory function intact. MUSCULOSKELETAL: Neck nontender, full range of motion, back nontender, full range of motion. EXTREMITIES: Nontender, full range of motion. SKIN: Color pink, dry, no turgor, no rash, no lacerations, no abrasions, no contusions. LYMPHATICS: Deferred. Results Laboratory and Microbiology Lab and Micro Result Laboratory Tests Test 05/22/25 08:40 05/22/25 08:53 Urine Color LIGHT-YELLOW (YELLOW) Urine Appearance CLEAR (CLEAR) Urine pH 6.0 (5.0-8.0) Urine Specific [place] 1.021 (1.001-1.031) Urine Protein NEGATIVE mg/dL (NEGATIVE) Urine Glucose (UA) NEGATIVE mg/dL (NEGATIVE) Urine Ketones NEGATIVE mg/dL (NEGATIVE) Urine Occult Blood NEGATIVE (NEGATIVE) Urine Nitrate NEGATIVE (NEGATIVE) Urine Bilirubin NEGATIVE mg/dL (NEGATIVE) Urine Urobilinogen 0.2 mg/dL (0.2-1.0) Urine Leukocyte Esterase 500 Vidhya/uL (NEGATIVE) H Urine RBC 2-5 /HPF (0-1) H Urine WBC 2-5 /HPF (0-1) H Urine Squamous Epithelial Cells FEW /HPF (0-2) Urine Bacteria None /HPF (None Seen) Urine HCG, Qualitative NEGATIVE (NEGATIVE) White Blood Count 6.8 K/uL (4.8-10.8) Red Blood Count 4.86 MIL/uL (4.00-5.50) Hemoglobin 14.8 g/dL (12.0-16.0) Hematocrit 45.4 % (36-48) Mean Corpuscular Volume 93.4 fL (79-99) Mean Corpuscular Hemoglobin 30.5 pg (27.0-33.0) Mean Corpuscular Hemoglobin Concent 32.6 g/dL (32.0-36.0) Red Cell Distribution Width 11.9 % (11.0-15.5) Platelet Count 283 K/uL (130-400) Mean Platelet Volume 10.0 fL (7.5-10.5) Immature Granulocyte % (Auto) 0.3 % (0-1) Neutrophils (%) (Auto) 69.6 % (40.0-77.0) Lymphocytes (%) (Auto) 25.8 % (21.0-51.0) Monocytes (%) (Auto) 3.7 % (3.0-13.0) Eosinophils (%) (Auto) 0.3 % (0.0-8.0) Basophils (%) (Auto) 0.3 % (0.0-5.0) Neutrophils # (Auto) 4.7 K/uL (1.8-7.7) Lymphocytes # (Auto) 1.8 K/uL (1.0-4.8) Monocytes # (Auto) 0.3 K/uL (0.1-1.0) Eosinophils # (Auto) 0.02 K/uL (0.00-0.70) Basophils # (Auto) 0.02 K/uL (0.00-0.20) Absolute Immature Granulocyte (auto 0.02 K/uL (0-1) Nucleated Red Blood Cells 0.0 % (0.0-0.19) Sodium Level 135 mmol/L (136-145) L Potassium Level 3.6 mmol/L (3.5-5.1) Chloride Level 100 mmol/L (101-111) L Carbon Dioxide Level 27 mmol/L (21-32) Blood Urea Nitrogen 16 mg/dL (7-18) Creatinine 0.7 mg/dL (0.5-1.0) Glomerular Filtration Rate Calc 122 mL/min (>90) Random Glucose 99 mg/dL (70-105) Total Calcium 9.0 mg/dL (8.5-10.1) Total Bilirubin 0.5 mg/dL (0.2-1.0) Aspartate Amino Transf (AST/SGOT) 19 U/L (10-37) Alanine Aminotransferase (ALT/SGPT) 20 U/L (12-78) Alkaline Phosphatase 82 U/L (50-136) Troponin I High Sensitivity 4 ng/L (4-50) Total Protein 9.2 g/dL (6.0-8.3) H Albumin 4.6 g/dL (3.5-5.0) Lipase 58 U/L (16-77) Labs Reviewed?: Yes EKG/XRAY/US/CT/MRI EKG Comment 10/20/2024 time 8:51 a.m. Ventricular rate 65 Sinus rhythm OR [address] wave elevation or depression Ultrasound Comment [place] [id number] [address] IMAGING REPORT Signed PATIENT: NINI GUADARRMAA MR#: [id number] : 2000 SEX: F AGE: 25 LOCATION: [facility] ORDER 0 STATUS: REG ER REPORT#: [id number] SERVICE [id number] REASON: ruq pain ORDERING PHYSICIAN: JERSON GUZMAN MD PROCEDURE: [id number] - US ABDOMINAL RUQ\LTD EXAMINATION: US Right Upper Quadrant CLINICAL HISTORY: Patient presents with right upper quadrant pain. TECHNIQUE: Grayscale and color Doppler ultrasound of the right upper quadrant was performed. COMPARISON: None provided. FINDINGS: LIVER: The liver measures 15 cm with increased echogenicity, suggestive of fatty infiltration. No focal hepatic lesion. GALLBLADDER: The gallbladder baumann are mildly thickened, with multiple mobile calculi. No pericholecystic fluid. BILIARY DUCTS: The common bile duct measures 4 mm. No intrahepatic biliary ductal dilatation. PANCREAS: The pancreas is normal. Visualized portions of the pancreatic head are unremarkable. The body and tail are obscured by bowel gas. RIGHT KIDNEY: The right kidney measures 9.9 x 4.0 x 3.8 cm. Unremarkable in size and echotexture. No hydronephrosis or calculus. IMPRESSION: Cholelithiasis with mildly thickened gallbladder, raising concern for cholecystitis. Recommend further evaluation with an HIDA scan if clinically warranted. Hepatic steatosis. No sonographic evidence of biliary obstruction. /[place] DICTATED BY: YONATHAN HINES Jr., MD DATE: 05/22/251101 ELECTRONICALLY SIGNED BY: YONATHAN HINES Jr., MD DATE: 05/22/251101 [facility] MDM: Differential diagnosis: Cholecystitis, cholelithiasis, Rationale: Tests considered and ordered secondary to shared decision making include: Previous outside records reviewed: Old ER visits. Risk of complication and/or morbidity or mortality of patient management: None Medications-Per medication reconciliation Need for hospitalization: Patient does meet criteria for hospitalization. Need for emergency major/minor surgery: No There are no social concerns with this patient. Prescription drug management Prescriptions will include symptomatic care Patient's prior external medical records from other ER visits were reviewed by me as indicated. Prior testing and results from previous visits were reviewed. Prior tests were taken into account with medical decision making and resource utilization, independent historian/historians were used to obtain complete medical history. I independently interpreted the test that were performed, results were reviewed by me and considered findings on radiology if ordered. Medical management and examination interpretation discussions were had by me with other qualified healthcare professionals as indicated for the patient's care. Case discussed with the surgeon on-call Dr. Falcon who states she will be taking in his surgery today NPO. Patient will be admitted under the care of hospitalist group ED Course Orders Procedure Category Date Status Time Cbc With Differential LAB 05/22/25 Complete 08:25 Chest 1vw RAD 05/22/25 Resulted 08:25 12 Lead Ekg Tracing- EKG 05/22/25 Complete Technical 08:25 0.9%Nacl 1000ml (Ns PHA 05/22/25 Complete 1000ml) 08:30 Troponin I High LAB 05/22/25 Complete Sensitivity 08:25 Comprehensive LAB 05/22/25 Complete Metabolic Panel 08:25 ,Urine Test LAB 05/22/25 Complete 08:25 Urinalysis LAB 05/22/25 Complete W/Microscopic 08:25 Pantoprazole 40mg Inj PHA 05/22/25 Complete (Protonix 40mg Inj 08:30 Us Abdominal Ruq\Ltd US 05/22/25 Resulted 09:10 Culture Urine COCO 05/22/25 In Process 09:23 Lidocaine Hcl 2% PHA 05/22/25 Complete Viscous (Lidocaine Hcl 10:00 Mag/Alum/Simeth 30ml PHA 05/22/25 Complete (Maalox Plus 30ml) 10:00 Lipase LAB 05/22/25 Complete 10:18 Ketorolac PHA 05/22/25 Complete Tromethamine 30mg/Ml 10:30 Current Medications Medications (Trade) Dose Ordered Sig/Darin Route PRN Reason Start Time Stop Time Status Last Admin Dose Admin Al Hydroxide/Mg Hydroxide (MAALox PLUS 30ML) 30 ml ONCE ONCE PO 05/22/25 10:00 05/22/25 10:01 DC 05/22/25 10:05 Ketorolac Tromethamine (toRADol) 30 mg ONCE ONCE IVP 05/22/25 10:30 05/22/25 10:32 DC 05/22/25 10:50 Lidocaine HCl (Lidocaine HCl 2% Viscous) 10 ml ONCE ONCE PO 05/22/25 10:00 05/22/25 10:01 DC 05/22/25 10:05 Pantoprazole Sodium (PROTonix 40MG INJ) 40 mg ONCE ONCE IVP 05/22/25 08:30 05/22/25 08:31 DC 05/22/25 08:53 Sodium Chloride 1,000 ml @ 0 mls/hr ONCE ONCE IV 05/22/25 08:30 05/22/25 08:31 DC 05/22/25 08:53 Vital Signs Date Time Temp Pulse Resp B/P (MAP) Pulse Ox O2 Delivery O2 Flow Rate FiO2 05/22/25 08:27 97.9 70 20 133/77 100 Room Air* 0 21 05/22/25 08:07 97.2 70 18 129/73 100 Room Air 0 DX & DISP Disposition: Inpatient Decision to Admit Time: 11:00 Departure Impression: Primary Impression: Cholecystitis Condition: Stable Referrals: JACK MCFADDEN (PCP) JERSON GUZMAN MD May 22, 2025 08:58
[2025-05-22 09:08] LABS: APPEARANCE,URINE CLEAR (CLEAR); GLUCOSE, URINE (UA) NEGATIVE (NEGATIVE); LEUKOCYTE ESTERASE ,URINE 500 Leu/uL (NEGATIVE); NITRATE,URINE NEGATIVE (NEGATIVE); OCCULT BLOOD,URINE NEGATIVE (NEGATIVE)
[2025-05-22 09:11] LABS: CREATININE 0.7 mg/dL (0.5-1.0); GLOMERULAR FILTR. RATE CALC 122.0 mL/min (>90); GLUCOSE,RANDOM 99.0 mg/dL (70-105); SODIUM SERUM 135.0 mmol/L (136-145); UREA NITROGEN, BLOOD 16.0 mg/dL (7-18)
[2025-05-22 09:18] LABS: ASPARTATE AMINOTRANSFERASE 19.0 U/L (10-37); TOTAL PROTEIN, SERUM 9.2 g/dL (6.0-8.3)
[2025-05-22 09:20] LABS: HCG,QUALITATIVE URINE NEGATIVE (NEGATIVE); SQUAMOUS EPITHELIAL CELL,UR FEW /HPF (0-2)
--- NOTE | 2025-05-22 10:03 | HMCIMG ---
EXAMINATION: US Right Upper Quadrant CLINICAL HISTORY: Patient presents with right upper quadrant pain. TECHNIQUE: Grayscale and color Doppler ultrasound of the right upper quadrant was performed. COMPARISON: None provided. FINDINGS: LIVER: The liver measures 15 cm with increased echogenicity, suggestive of fatty infiltration. No focal hepatic lesion. GALLBLADDER: The gallbladder baumann are mildly thickened, with multiple mobile calculi. No pericholecystic fluid. BILIARY DUCTS: The common bile duct measures 4 mm. No intrahepatic biliary ductal dilatation. PANCREAS: The pancreas is normal. Visualized portions of the pancreatic head are unremarkable. The body and tail are obscured by bowel gas. RIGHT KIDNEY: The right kidney measures 9.9 x 4.0 x 3.8 cm. Unremarkable in size and echotexture. No hydronephrosis or calculus. IMPRESSION: Cholelithiasis with mildly thickened gallbladder, raising concern for cholecystitis. Recommend further evaluation with an HIDA scan if clinically warranted. Hepatic steatosis. No sonographic evidence of biliary obstruction. /[place]
[2025-05-22] MEDS: LIDOCAINE HCL 2% VISCOUS 15 ML UDCUP PO ONE (10:05)
[2025-05-22] MEDS: MAG/ALUM/SIMETH 30 ML UDCUP PO ONE (10:05)
--- NOTE | 2025-05-22 10:22 | HMCIMG ---
EXAM: CR Chest, 1 View. CLINICAL HISTORY: cp COMPARISON: None provided. FINDINGS: LUNGS: The lungs show no infiltrate or other acute finding. PLEURAL SPACES: No pleural effusion or pneumothorax. MEDIASTINUM: The cardiomediastinal silhouette is within normal limits. BONES: No aggressively appearing osseous lesion. IMPRESSION: No acute cardiopulmonary pathology is evident. /[place]
--- NOTE | 2025-05-22 10:28 | EKG ---
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
--- NOTE | 2025-05-22 11:44 | HP ---
[facility] HISTORY AND PHYSICAL Date of Service: May 22, 2025 Time of Service: 11:41 HISTORY OF PRESENT ILLNESS: Date of service: 05/22/2025, patient was seen in ER room 18 This is a 25-year-old female with underlying history of obesity, asthma, presented to the ER for further evaluation of severe right upper quadrant abdominal pain. Symptoms have been ongoing since 10:00 p.m. last night and has been progressive in intensity. Pain was 10/10 in severity. Patient initially thought that she was having asthma attack from the pain but pain was not improving with albuterol inhaler prompting her to come to the ER for further evaluation. She does report having intermittent episodes of right-sided upper quadrant pain about two to 3 times a week over the last several months. She was seen in the ER on 03/2025 for gastritis. She reports that in 2022, he used to be a close to 220 lb in since then, she has been running to assist with weight loss, currently she states that she weighs close to 170 lb. She denies any cough, wheezing or significant congestion. She denies having previous history of asthma exacerbation requiring hospitalization. She denies any prior cardiac or GI comorbidities. On presentation to the hospital, patient was noted to be afebrile with T-max of 97.2 F, heart rate of 70, blood pressure 129/73. Labs on presentation showed WBC count of 6800, hemoglobin 14.8, platelet count of 531009. BMP showed sodium of 135, potassium 3.6, chloride of 100, BUN of 16, creatinine of 0.7, liver enzymes were noted to be normal. Right upper quadrant ultrasound showed findings of cholelithiasis with mildly thickened gallbladder concerning for possible acute cholecystitis. Chest x-ray showed no infiltrates. Patient will be admitted to the hospitalist service for further management of symptomatic biliary colic with concerns for developing acute cholecystitis. Patient will be kept on bowel rest, she will be started on IV fluids, she will be started on IV antibiotics. Consultation with Dr. Janina conteh has already been obtained from the ER, we will be consulting on this patient's case. We will see how patient progresses in the next 24-48 hours. REVIEW OF SYSTEMS CONSTITUTIONAL: Denies fevers, chills, or night sweats. No unintentional weight loss reported. NEUROLOGICAL: Denies headache, amaurosis fugax, motor weakness, sensory deficit, vertigo/spinning sensation, gait abnormalities, or tremors. ENT: No hearing loss, otalgia, otorrhea, rhinitis, rhinorrhea, hoarseness, or sore throat. CARDIOVASCULAR: Denies any exertional angina, dyspnea on exertion, orthopnea, paroxysmal nocturnal dyspnea, palpitations, life-threatening arrhythmias, claudication. PULMONARY: Denies any shortness of breath, cough, phlegm/sputum, hemoptysis, pleuritic chest pain. SLEEP: Denies morning headaches, daytime somnolence or napping. Denies difficulty falling asleep, staying asleep, waking from sleep. Denies knowledge of snoring. GASTROINTESTINAL: Nausea with severe right upper quadrant abdominal pain, denies diarrhea GENITOURINARY: Denies frequency, urgency, nocturia, hematuria or incontinence (Storage/Irritative symptoms.) Low urinary stream, straining to void, urinary intermittency or hesitancy, splitting of the voiding stream, terminal dribbling. ENDOCRINOLOGIC: Denies polyuria, polydipsia, polyphagia or heat/cold intolerances. HEMATOLOGIC: Denies thrombophilia/previous clots, or coagulopathy/bleeding disorders. ONCOLOGIC: Denies personal history of malignancy. DERMATOLOGIC: Denies rashes or pruritus. PSYCHIATRIC: Denies any suicidal or homicidal ideation. Denies hallucinations. 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 NEUROLOGICAL: Cranial nerves II-XII grossly intact. Motor is 5/5 in bilateral upper and lower extremities proximal to distal. No sensory deficits. HEENT: Face is symmetric. Pupils are equal and reactive. Extraocular movements are intact. NECK: Supple. No JVD. No thyromegaly. No submental, submandibular, pre- /postauricular, occipital or supraclavicular lymphadenopathy. CHEST: Normal chest expansion. No Telemetry. LUNGS: Absence of any rales, rhonchi or any wheezing. CARDIOVASCULAR: Regular. S1 and S2 normal. No appreciable rubs, murmurs or gallops. ABDOMEN: Soft, nontender, and nondistended. There is no rebound, voluntary guarding, or rigidity. : Deferred. No [place]. EXTREMITIES: Non-edematous and not cyanotic. No clubbing. Good capillary refill. SKIN: No skin breakdown. Vital Sign (Last 24 Hours) 05/22/25 08:27 Temp 97.9 Pulse 70 Resp 20 B/P (MAP) 133/77 Pulse Ox 100 O2 Delivery Room Air* O2 Flow Rate 0 FiO2 21 LABS: Laboratory: Test 05/22/25 08:53 05/22/25 08:40 Range/Units White Blood Count 6.8 4.8-10.8 K/uL Red Blood Count 4.86 4.00-5.50 MIL/uL Hemoglobin 14.8 12.0-16.0 g/dL Hematocrit 45.4 36-48 % Mean Corpuscular Volume 93.4 79-99 fL Mean Corpuscular Hemoglobin 30.5 27.0-33.0 pg Mean Corpuscular Hemoglobin Concent 32.6 32.0-36.0 g/dL Red Cell Distribution Width 11.9 11.0-15.5 % Platelet Count 283 130-400 K/uL Mean Platelet Volume 10.0 7.5-10.5 fL Immature Granulocyte % (Auto) 0.3 0-1 % Neutrophils (%) (Auto) 69.6 40.0-77.0 % Lymphocytes (%) (Auto) 25.8 21.0-51.0 % Monocytes (%) (Auto) 3.7 3.0-13.0 % Eosinophils (%) (Auto) 0.3 0.0-8.0 % Basophils (%) (Auto) 0.3 0.0-5.0 % Neutrophils # (Auto) 4.7 1.8-7.7 K/uL Lymphocytes # (Auto) 1.8 1.0-4.8 K/uL Monocytes # (Auto) 0.3 0.1-1.0 K/uL Eosinophils # (Auto) 0.02 0.00-0.70 K/uL Basophils # (Auto) 0.02 0.00-0.20 K/uL Absolute Immature Granulocyte (auto 0.02 0-1 K/uL Nucleated Red Blood Cells 0.0 0.0-0.19 % Sodium Level 135 L 136-145 mmol/L Potassium Level 3.6 3.5-5.1 mmol/L Chloride Level 100 L 101-111 mmol/L Carbon Dioxide Level 27 21-32 mmol/L Blood Urea Nitrogen 16 7-18 mg/dL Creatinine 0.7 0.5-1.0 mg/dL Glomerular Filtration Rate Calc 122 >90 mL/min Random Glucose 99 70-105 mg/dL Total Calcium 9.0 8.5-10.1 mg/dL Total Bilirubin 0.5 0.2-1.0 mg/dL Aspartate Amino Transf (AST/SGOT) 19 10-37 U/L Alanine Aminotransferase (ALT/SGPT) 20 12-78 U/L Alkaline Phosphatase 82 50-136 U/L Troponin I High Sensitivity 4 4-50 ng/L C-Reactive Protein, Quantitative 1.00 0.5-3.0 mg/L Total Protein 9.2 H 6.0-8.3 g/dL Albumin 4.6 3.5-5.0 g/dL Lipase 58 16-77 U/L Urine Color LIGHT-YELLOW YELLOW Urine Appearance CLEAR CLEAR Urine pH 6.0 5.0-8.0 Urine Specific [place] 1.021 1.001-1.031 Urine Protein NEGATIVE NEGATIVE mg/dL Urine Glucose (UA) NEGATIVE NEGATIVE mg/dL Urine Ketones NEGATIVE NEGATIVE mg/dL Urine Occult Blood NEGATIVE NEGATIVE Urine Nitrate NEGATIVE NEGATIVE Urine Bilirubin NEGATIVE NEGATIVE mg/dL Urine Urobilinogen 0.2 0.2-1.0 mg/dL Urine Leukocyte Esterase 500 H NEGATIVE Vidhya/uL Urine RBC 2-5 H 0-1 /HPF Urine WBC 2-5 H 0-1 /HPF Urine Squamous Epithelial Cells FEW 0-2 /HPF Urine Bacteria None None Seen /HPF Urine HCG, Qualitative NEGATIVE NEGATIVE Current Medications Medications (Trade) Dose Ordered Sig/Darin Route PRN Reason Start Time Stop Time Status Last Admin Dose Admin Acetaminophen (TYLenol 325MG TAB) 650 mg Q6H PRN PO MILD PAIN (1-3) 05/22/25 11:30 06/21/25 11:29 Albuterol (DUOneb) 1 udvial Q6H PRN IH SHORTNESS OF BREATH 05/22/25 11:30 06/21/25 11:29 Budesonide (Pulmicort 0.5 Mg/2ml) 0.5 mg BIDRESP IH 05/22/25 18:00 06/21/25 17:59 Ceftriaxone Sodium (ROCEphine 1G INJ) 1 gm Q12H IVPB 05/22/25 11:30 06/01/25 11:29 Ketorolac Tromethamine (toRADol) 15 mg Q12H PRN IV MODERATE PAIN (4-6) 05/22/25 11:30 05/24/25 11:30 Metronidazole/ Sodium Chloride 100 ml @ 100 mls/hr Q8H6 IVPB 05/22/25 14:00 06/01/25 13:59 Morphine Sulfate (morPHINE 2MG SYG) 2 mg Q6H PRN IVP SEVERE PAIN (7-10) 05/22/25 11:30 05/29/25 11:29 Ondansetron HCl (zoFRAN 4MG INJ) 4 mg Q6H PRN IVP NAUSEA/VOMITING 05/22/25 11:30 06/21/25 11:29 Pantoprazole Sodium (PROTonix 40MG INJ) 40 mg DAILY IVP 05/23/25 09:00 06/22/25 08:59 Sodium Chloride 1,000 ml @ 80 mls/hr [id number] IV 05/22/25 11:30 06/21/25 11:29 DIAGNOSTICS / RADIOLOGY: SERVICE 9 REASON: ruq pain ORDERING PHYSICIAN: JERSON GUZMAN MD PROCEDURE: ABDRUQLTD - US ABDOMINAL RUQ\LTD EXAMINATION: US Right Upper Quadrant CLINICAL HISTORY: Patient presents with right upper quadrant pain. TECHNIQUE: Grayscale and color Doppler ultrasound of the right upper quadrant was performed. COMPARISON: None provided. FINDINGS: LIVER: The liver measures 15 cm with increased echogenicity, suggestive of fatty infiltration. No focal hepatic lesion. GALLBLADDER: The gallbladder baumann are mildly thickened, with multiple mobile calculi. No pericholecystic fluid. BILIARY DUCTS: The common bile duct measures 4 mm. No intrahepatic biliary ductal dilatation. PANCREAS: The pancreas is normal. Visualized portions of the pancreatic head are unremarkable. The body and tail are obscured by bowel gas. RIGHT KIDNEY: The right kidney measures 9.9 x 4.0 x 3.8 cm. Unremarkable in size and echotexture. No hydronephrosis or calculus. IMPRESSION: Cholelithiasis with mildly thickened gallbladder, raising concern for cholecystitis. Recommend further evaluation with an HIDA scan if clinically warranted. Hepatic steatosis. No sonographic evidence of biliary obstruction. /[place] DICTATED BY: YONATHAN HINES Jr., MD DATE: 05/22/251101 ELECTRONICALLY SIGNED BY: YONATHAN HINES Jr., MD DATE: 05/22/251101 ASSESSMENT: Symptomatic biliary colic, POA Rule out developing acute cholecystitis, POA Hyponatremia, mild, POA obesity, POA History of asthma, POA Urinary tract infection, POA PLAN: Patient will be admitted to medical-surgical floor Patient will be kept strictly NPO Consultation with General surgery has been requested with Dr. Roa, we will await further evaluation Abdominal ultrasound showed findings of possible developing acute cholecystitis with cholelithiasis, we will keep patient on broad-spectrum antibiotics with IV Rocephin/Flagyl We will start patient on IV hydration with NS at 80 mL/hour We will keep patient on GI prophylaxis Protonix 40 mg daily We will keep patient on DVT prophylaxis with SCDs All labs will be repeated in the morning We will see how patient progresses in the next 24-48 hours, we will see if patient needs surgical evaluation for laparoscopic cholecystectomy Date of service: 05/22/2025 Plan of care was discussed with patient at bedside, Rayo Hutchinson MD Advanced Care Planning: Which of the following were discussed: Hospice care: Yes __ No _X_ Therapeutic options: Yes _X_ No __ Advance directives: Yes _X_ No __ Other discussions: Discussed with who?: Patient Voluntary nature of this service was explained to the patient? Yes _x_ No __ Amount of time spent: 20 minutes RAYO HUTCHINSON MD May 22, 2025 11:44
[2025-05-22 11:46] VITALS: PULSE 73; RESP 14; O2SAT 95
[2025-05-22] MEDS: 0.9%NACL 1000ML 1,000 ML IV SCH (11:49)
[2025-05-22] MEDS: ZOSYN 3.375GM +NS 50ML IV ONE (11:56)
--- NOTE | 2025-05-22 15:02 | CONS ---
CONSULT NOTE: Consulting physician:Dr Hutchinson Consulting service: General surgery Reason for consultation: Symptomatic cholelithiasis History of present illness: This is a 25-year-old female with a known history of cholelithiasis who has been consulted to surgery after presenting to the hospital with the abdominal pain that began yesterday evening. Patient reports previous episodes over the last few years but due to concerns of significant discomfort she presented for further evaluation. Initial imaging concerning for acute cholecystitis but recommending HIDA scan. WBCs unremarkable LFTs unremarkable. Patient NPO on IV fluids and IV antibiotics Medical history: Known cholelithiasis Surgical history: Review of systems: General: No Fever, No Chills, No Night Sweats, No Fatigue, No Malaise, No Appetite, No Other HEENT: No Head Aches, No Visual Changes, No Eye Pain, No Ear Pain, No Dysphasia, No Sinus Congestion, No Post Nasal Drip, No Sore Throat, No Other Pulmonary: No Dyspnea, No Cough, No Pleuritic Chest Pain, No Other Cardiovascular: No: Chest Pain, Palpitations, Orthopnea, Paroxysmal No Dyspnea, Edema, Lt Headedness, Other Gastrointestinal: No: Nausea, Vomiting, Diarrhea, Constipation, Melena, Hematochezia, Other Genitourinary: No Dysuria, No Frequency, No Incontinence, No Hematuria, No Retention, No Other Musculoskeletal: No: other, neck pain, shoulder pain, arm pain, back pain, hand pain, leg pain, foot pain Skin: No Urticaria, No Rash, No Other Neurological: No: Weakness, Numbness, Incoordination, Change in speech, Confusion, Seizures, Other Physical exam: General: Awake alert and oriented Heart: Regular rate and rhythm} Lungs: Clear to auscultation no distress Abdomen: [Soft, nontender, nondistended mild upper quadrant discomfort Assessment: This is a 25-year-old female with concerns for symptomatic cholelithiasis Plan: At this point in time we will order HIDA scan to better assess for cholecystitis Patient to remain NPO After imaging patient to be allowed diet Results to be reported to Surgical team Dr. Falcon to be updated in patient's status thank you for the consultation Surgical case has been discussed with my supervising physician in the above plan was formulated and agreed upon Supervising physicians evaluation the patient be done within next 24 hours We appreciate the hospitalist team for us to participate in patient's care. Greater than 55 minutes of time spent patient, reviewing chart, working on documentation HENRY ARMSTRONG Jr. PAC May 22, 2025 15:02
--- NOTE | 2025-05-22 18:14 | NUR ---
BEDSIDE REPORT GIVEN TO MADELINE PLATT, TOY SENT WITH PATIENT
[2025-05-22 18:20] VITALS: BP 123/78; PULSE 77; RESP 18; TEMP 98; O2SAT 99
--- NOTE | 2025-05-22 18:20 | NUR ---
REPORT RECEIVED FROM MUKUL RN. PATIENT ARRIVED TO THE UNIT NO SIGNS OF DISTRESS NOTED. PATIENT ORIENTED TO THE ROOM BED LOW AND LOCKED WITH CALL LIGHT IN REACH
[2025-05-22] MEDS: BUDESONIDE 0.5 MG/2 ML INH IH SCH (19:53)
[2025-05-22 19:54] VITALS: PULSE 60; RESP 18
[2025-05-22 19:55] VITALS: PULSE 60; RESP 18; O2SAT 99
[2025-05-22 20:00] VITALS: BP 102/60; PULSE 60; RESP 16; TEMP 98.2
[2025-05-23] VITALS (30 sets, daily range): BP systolic 97–132; BP diastolic 46–77; PULSE 54–87; RESP 15–22; TEMP 97.5–98.9; O2SAT 98–99
--- NOTE | 2025-05-23 00:23 | HMCIMG ---
EXAM: HIDA scan INDICATION: Severe RUQ Pain to rule out acute cholecystitis. REFERENCE EXAMINATION: None TECHNIQUE: Sequential images of the abdomen were obtained in the anterior projection after IV administration of 6.6 mCi of Tc99m Mebrofenin. FINDINGS: Tracer activity throughout the liver is homogeneous without focal defects. There is prompt excretion of the pharmaceutical into the bile ducts and into the small bowel, without evidence of obstruction. There is nonvisualization of the gallbladder at the conclusion of the examination. IMPRESSION: Scintigraphic findings are compatible with acute cholecystitis. /Fred
[2025-05-23 03:34] LABS: IMMATURE GRANULOCYTE ABSOLUTE 0.03 K/uL (0-1); NUCLEATED RED BLOOD CELLS 0.0 % (0.0-0.19); PLATELET COUNT (AUTO) 217 K/uL (130-400); RED BLOOD CELL COUNT(AUTO) 3.92 MIL/uL (4.00-5.50); RED CELL DISTRIBUTION WIDTH 12.0 % (11.0-15.5); WHITE BLOOD COUNT (AUTO) 6.8 K/uL (4.8-10.8)
[2025-05-23 03:55] LABS: ASPARTATE AMINOTRANSFERASE 14.0 U/L (10-37); CREATININE 0.7 mg/dL (0.5-1.0); GLOMERULAR FILTR. RATE CALC 122.0 mL/min (>90); GLUCOSE,RANDOM 86.0 mg/dL (70-105); SODIUM SERUM 144.0 mmol/L (136-145); TOTAL PROTEIN, SERUM 6.3 g/dL (6.0-8.3); UREA NITROGEN, BLOOD 12.0 mg/dL (7-18)
--- NOTE | 2025-05-23 08:05 | PN ---
GENERAL SURGERY PROGRESS NOTE Date/Time Patient Seen: [05/23/2025 07:45 ] Problem List: [ Acute Cholecystitis with cholelithiasis] Interval History: [ 25 year old female with suspected cholecystitis HIDA scan positive Has been NPO since Continues with RUQ pain Denies nausea or vomiting WBCs 6.8 H&H 12.2/37.1 Normal LFTs and bilirubin ] Current Medications Medications (Trade) Dose Ordered Sig/Darin Route Start Time Stop Time Status Last Admin Dose Admin Budesonide (Pulmicort 0.5 Mg/2ml) 0.5 mg BIDRESP IH 05/22/25 18:00 06/21/25 17:59 05/23/25 06:29 0.5 MG Ceftriaxone Sodium (ROCEphine 1G INJ) 1 gm Q12H IVPB 05/22/25 11:30 06/01/25 11:29 05/22/25 23:13 1 GM Metronidazole/ Sodium Chloride 100 ml @ 100 mls/hr Q8H6 IVPB 05/22/25 14:00 06/01/25 13:59 05/23/25 04:59 100 MLS/HR Pantoprazole Sodium (PROTonix 40MG INJ) 40 mg DAILY IVP 05/23/25 09:00 06/22/25 08:59 Sodium Chloride 1,000 ml @ 80 mls/hr [id number] IV 05/22/25 11:30 06/21/25 11:29 05/22/25 20:44 80 MLS/HR Physical Examination: GENERAL: [No acute distress.] HEAD: [Normocephalic.] EYES: [Non-icteric sclera bilaterally.] ENT: [Hearing grossly intact.] NECK: [Supple.] LUNGS: [Clear breath sounds bilaterally.] HEART: [Normal rate and rhythm.] VASC: [Peripheral pulses +2 bilaterally.] ABD: [RUQ tenderness on palpation, Bowel sounds normal, soft, no guarding or rigidity.] : [Not examined] EXT: [No edema.] SKIN: [No rashes or lesions noted.] NEURO: [Awake, alert, and oriented x3. No focal sensory or strength deficits noted.] Vital Signs (last 8hr) Date Time Temp Pulse Resp B/P (MAP) Pulse Ox O2 Delivery O2 Flow Rate FiO2 05/23/25 06:33 65 18 N/A Room Air 21 05/23/25 06:30 65 18 05/23/25 04:00 97.7 63 20 97/54 96 Room Air 05/23/25 00:00 97.5 54 16 97/46 98 Room Air Laboratory: [ ] Hematology Labs: Test 05/23/25 03:16 05/22/25 08:53 Range/Units White Blood Count 6.8 4.8-10.8 K/uL Red Blood Count 3.92 L 4.00-5.50 MIL/uL Hemoglobin 12.2 12.0-16.0 g/dL Hematocrit 37.1 36-48 % Mean Corpuscular Volume 94.6 79-99 fL Mean Corpuscular Hemoglobin 31.1 27.0-33.0 pg Mean Corpuscular Hemoglobin Concent 32.9 32.0-36.0 g/dL Red Cell Distribution Width 12.0 11.0-15.5 % Platelet Count 217 130-400 K/uL Mean Platelet Volume 10.4 7.5-10.5 fL Immature Granulocyte % (Auto) 0.4 0-1 % Neutrophils (%) (Auto) 46.6 40.0-77.0 % Lymphocytes (%) (Auto) 44.3 21.0-51.0 % Monocytes (%) (Auto) 6.3 3.0-13.0 % Eosinophils (%) (Auto) 2.1 0.0-8.0 % Basophils (%) (Auto) 0.3 0.0-5.0 % Neutrophils # (Auto) 3.2 1.8-7.7 K/uL Lymphocytes # (Auto) 3.0 1.0-4.8 K/uL Monocytes # (Auto) 0.4 0.1-1.0 K/uL Eosinophils # (Auto) 0.14 0.00-0.70 K/uL Basophils # (Auto) 0.02 0.00-0.20 K/uL Absolute Immature Granulocyte (auto 0.03 0-1 K/uL Nucleated Red Blood Cells 0.0 0.0-0.19 % Erythrocyte Sedimentation Rate 18 0-20 MM/HR Chemistry Labs: Test 05/23/25 03:16 05/22/25 08:53 Range/Units Sodium Level 144 136-145 mmol/L Potassium Level 3.7 3.5-5.1 mmol/L Chloride Level 108 101-111 mmol/L Carbon Dioxide Level 28 21-32 mmol/L Blood Urea Nitrogen 12 7-18 mg/dL Creatinine 0.7 0.5-1.0 mg/dL Glomerular Filtration Rate Calc 122 >90 mL/min Random Glucose 86 70-105 mg/dL Total Calcium 7.8 L 8.5-10.1 mg/dL Total Bilirubin 0.6 0.2-1.0 mg/dL Aspartate Amino Transf (AST/SGOT) 14 10-37 U/L Alanine Aminotransferase (ALT/SGPT) 14 # 12-78 U/L Alkaline Phosphatase 58 # 50-136 U/L Total Protein 6.3 # 6.0-8.3 g/dL Albumin 3.1 #L 3.5-5.0 g/dL Troponin I High Sensitivity 4 4-50 ng/L C-Reactive Protein, Quantitative 1.00 0.5-3.0 mg/L Lipase 58 16-77 U/L Diagnostics / Radiology: [place] [address] IMAGING REPORT Addendum PATIENT: NINI GUADARRAMA MR#: [id number] : 2000 SEX: F AGE: 25 LOCATION: [facility] ORDER 1550 STATUS: ADM IN REPORT#: [id number] SERVICE 1549 REASON: r/o cholelithiasis ORDERING PHYSICIAN: HENRY ARMSTRONG Jr. PAC PROCEDURE: HIDAWO - NM HIDA WO EF/CCK ADDENDUM REPORT ADDENDUM: Results were shared by telephone at 02:07 AM EST on 05-23-2025 and acknowledged by the [facility] Ms. Raghu Rand. /[place] EXAM: HIDA scan INDICATION: Severe RUQ Pain to rule out acute cholecystitis. REFERENCE EXAMINATION: None TECHNIQUE: Sequential images of the abdomen were obtained in the anterior projection after IV administration of 6.6 mCi of Tc99m Mebrofenin. FINDINGS: Tracer activity throughout the liver is homogeneous without focal defects. There is prompt excretion of the pharmaceutical into the bile ducts and into the small bowel, without evidence of obstruction. There is nonvisualization of the gallbladder at the conclusion of the examination. IMPRESSION: Scintigraphic findings are compatible with acute cholecystitis. /[place] DICTATED BY: YONATHAN HINES Jr., MD DATE: 05/23/25215 ELECTRONICALLY SIGNED BY: DATE: EXAM: HIDA scan INDICATION: Severe RUQ Pain to rule out acute cholecystitis. REFERENCE EXAMINATION: None TECHNIQUE: Sequential images of the abdomen were obtained in the anterior projection after IV administration of 6.6 mCi of Tc99m Mebrofenin. FINDINGS: Tracer activity throughout the liver is homogeneous without focal defects. There is prompt excretion of the pharmaceutical into the bile ducts and into the small bowel, without evidence of obstruction. There is nonvisualization of the gallbladder at the conclusion of the examination. IMPRESSION: Scintigraphic findings are compatible with acute cholecystitis. /[place] DICTATED BY: YONATHAN HINES Jr., MD DATE: 05/23/25121 ELECTRONICALLY SIGNED BY: YONATHAN HINES Jr., MD DATE: 05/23/25121 Impression and Plan: [25 year old female with confirmed cholecystitis Schedule for surgery today with Dr. Roa Keep NPO Obtain consent for robotic cholecystectomy, possible open cholecystectomy Instructed patient and spouse on risks of surgery including bleeding, infection, delayed wound healing and/or injury to other organs Patient and spouse verbalized understanding well and agree to proceed with scheduled surgery Continue with IV fluids and antibiotics Surgical team will continue to follow Dr. Roa updated on patient's status Surgical case has been discussed with my supervising physician in the above plan was formulated and agreed upon We appreciate the hospitalist team for us to participate in patient's care. Greater than 45 minutes of time spent patient, reviewing chart, working on documentation ] ATTESTATION BY PHYSICIAN I have seen and examined the patient. I reviewed the documentation, medical decision making, and treatment plan as noted by the mid-level provider above. I agree with the findings and plan of care. MD JOHN MAGALLANES [facility] May 23, 2025 08:05
--- NOTE | 2025-05-23 11:17 | PN ---
[facility] PROGRESS NOTE Date of Service: May 23, 2025 Time of Service: 11:16 SUBJECTIVE: 05/23 admitted to medical floor, comfortably bed, alert oriented x3, getting IV fluids and IV antibiotics during my visit, afebrile, saturating normal on room air. No chest pain, shortness shortness for breath, getting good pain control with current medical management, no nausea, no vomiting, no discomfort. HIDA scan reviewed, discussed with the patient, finding consistent with a acute cholecystitis, General Surgical consultation requested, follow input recommendation. Follow a.m. labs. REVIEW OF SYSTEMS CONSTITUTIONAL: Denies fevers, chills, or night sweats. No unintentional weight loss reported. NEUROLOGICAL: Denies headache, amaurosis fugax, motor weakness, sensory deficit, vertigo/spinning sensation, gait abnormalities, or tremors. ENT: No hearing loss, otalgia, otorrhea, rhinitis, rhinorrhea, hoarseness, or sore throat. CARDIOVASCULAR: Denies any exertional angina, dyspnea on exertion, orthopnea, paroxysmal nocturnal dyspnea, palpitations, life-threatening arrhythmias, claudication. PULMONARY: Denies any shortness of breath, cough, phlegm/sputum, hemoptysis, pleuritic chest pain. SLEEP: Denies morning headaches, daytime somnolence or napping. Denies difficulty falling asleep, staying asleep, waking from sleep. Denies knowledge of snoring. GASTROINTESTINAL: Nausea with severe right upper quadrant abdominal pain, denies diarrhea GENITOURINARY: Denies frequency, urgency, nocturia, hematuria or incontinence (Storage/Irritative symptoms.) Low urinary stream, straining to void, urinary intermittency or hesitancy, splitting of the voiding stream, terminal dribbling. ENDOCRINOLOGIC: Denies polyuria, polydipsia, polyphagia or heat/cold intolerances. HEMATOLOGIC: Denies thrombophilia/previous clots, or coagulopathy/bleeding disorders. ONCOLOGIC: Denies personal history of malignancy. DERMATOLOGIC: Denies rashes or pruritus. PSYCHIATRIC: Denies any suicidal or homicidal ideation. Denies hallucinations. PHYSICAL EXAM GENERAL APPEARANCE: The patient is awake, alert, and oriented, in no acute cardiopulmonary distress. NEUROLOGICAL: Cranial nerves II-XII grossly intact. Motor is 5/5 in bilateral upper and lower extremities proximal to distal. No sensory deficits. HEENT: Face is symmetric. Pupils are equal and reactive. Extraocular movements are intact. NECK: Supple. No JVD. No thyromegaly. No submental, submandibular, pre- /postauricular, occipital or supraclavicular lymphadenopathy. CHEST: Normal chest expansion. No Telemetry. LUNGS: Absence of any rales, rhonchi or any wheezing. CARDIOVASCULAR: Regular. S1 and S2 normal. No appreciable rubs, murmurs or gallops. ABDOMEN: Soft, nontender, and nondistended. There is no rebound, voluntary guarding, or rigidity. : Deferred. No Lawrence. EXTREMITIES: Non-edematous and not cyanotic. No clubbing. Good capillary refill. SKIN: No skin breakdown. Vital Signs (last 8hr) Date Time Temp Pulse Resp B/P (MAP) Pulse Ox O2 Delivery O2 Flow Rate FiO2 05/23/25 08:00 98 Room Air* 0 21 05/23/25 07:15 98.1 55 16 100/49 98 Room Air 05/23/25 06:33 65 18 N/A Room Air 21 05/23/25 06:30 65 18 05/23/25 04:00 97.7 63 20 97/54 96 Room Air LABS: Laboratory: Test 05/23/25 03:16 05/22/25 08:53 05/22/25 08:40 Range/Units White Blood Count 6.8 4.8-10.8 K/uL Red Blood Count 3.92 L 4.00-5.50 MIL/uL Hemoglobin 12.2 12.0-16.0 g/dL Hematocrit 37.1 36-48 % Mean Corpuscular Volume 94.6 79-99 fL Mean Corpuscular Hemoglobin 31.1 27.0-33.0 pg Mean Corpuscular Hemoglobin Concent 32.9 32.0-36.0 g/dL Red Cell Distribution Width 12.0 11.0-15.5 % Platelet Count 217 130-400 K/uL Mean Platelet Volume 10.4 7.5-10.5 fL Immature Granulocyte % (Auto) 0.4 0-1 % Neutrophils (%) (Auto) 46.6 40.0-77.0 % Lymphocytes (%) (Auto) 44.3 21.0-51.0 % Monocytes (%) (Auto) 6.3 3.0-13.0 % Eosinophils (%) (Auto) 2.1 0.0-8.0 % Basophils (%) (Auto) 0.3 0.0-5.0 % Neutrophils # (Auto) 3.2 1.8-7.7 K/uL Lymphocytes # (Auto) 3.0 1.0-4.8 K/uL Monocytes # (Auto) 0.4 0.1-1.0 K/uL Eosinophils # (Auto) 0.14 0.00-0.70 K/uL Basophils # (Auto) 0.02 0.00-0.20 K/uL Absolute Immature Granulocyte (auto 0.03 0-1 K/uL Nucleated Red Blood Cells 0.0 0.0-0.19 % Sodium Level 144 136-145 mmol/L Potassium Level 3.7 3.5-5.1 mmol/L Chloride Level 108 101-111 mmol/L Carbon Dioxide Level 28 21-32 mmol/L Blood Urea Nitrogen 12 7-18 mg/dL Creatinine 0.7 0.5-1.0 mg/dL Glomerular Filtration Rate Calc 122 >90 mL/min Random Glucose 86 70-105 mg/dL Total Calcium 7.8 L 8.5-10.1 mg/dL Total Bilirubin 0.6 0.2-1.0 mg/dL Aspartate Amino Transf (AST/SGOT) 14 10-37 U/L Alanine Aminotransferase (ALT/SGPT) 14 # 12-78 U/L Alkaline Phosphatase 58 # 50-136 U/L Total Protein 6.3 # 6.0-8.3 g/dL Albumin 3.1 #L 3.5-5.0 g/dL Erythrocyte Sedimentation Rate 18 0-20 MM/HR Troponin I High Sensitivity 4 4-50 ng/L C-Reactive Protein, Quantitative 1.00 0.5-3.0 mg/L Lipase 58 16-77 U/L Urine Color LIGHT-YELLOW YELLOW Urine Appearance CLEAR CLEAR Urine pH 6.0 5.0-8.0 Urine Specific [place] 1.021 1.001-1.031 Urine Protein NEGATIVE NEGATIVE mg/dL Urine Glucose (UA) NEGATIVE NEGATIVE mg/dL Urine Ketones NEGATIVE NEGATIVE mg/dL Urine Occult Blood NEGATIVE NEGATIVE Urine Nitrate NEGATIVE NEGATIVE Urine Bilirubin NEGATIVE NEGATIVE mg/dL Urine Urobilinogen 0.2 0.2-1.0 mg/dL Urine Leukocyte Esterase 500 H NEGATIVE Vidhya/uL Urine RBC 2-5 H 0-1 /HPF Urine WBC 2-5 H 0-1 /HPF Urine Squamous Epithelial Cells FEW 0-2 /HPF Urine Bacteria None None Seen /HPF Urine HCG, Qualitative NEGATIVE NEGATIVE Current Medications Medications (Trade) Dose Ordered Sig/Darin Route PRN Reason Start Time Stop Time Status Last Admin Dose Admin Acetaminophen (TYLenol 325MG TAB) 650 mg Q6H PRN PO MILD PAIN (1-3) 05/22/25 11:30 06/21/25 11:29 Albuterol (DUOneb) 1 udvial Q6H PRN IH SHORTNESS OF BREATH 05/22/25 11:30 06/21/25 11:29 Budesonide (Pulmicort 0.5 Mg/2ml) 0.5 mg BIDRESP IH 05/22/25 18:00 06/21/25 17:59 05/23/25 06:29 0.5 MG Ceftriaxone Sodium (ROCEphine 1G INJ) 1 gm Q12H IVPB 05/22/25 11:30 06/01/25 11:29 05/23/25 11:14 1 GM Ketorolac Tromethamine (toRADol) 15 mg Q12H PRN IV MODERATE PAIN (4-6) 05/22/25 11:30 05/24/25 11:30 05/22/25 20:43 15 MG Metronidazole/ Sodium Chloride 100 ml @ 100 mls/hr Q8H6 IVPB 05/22/25 14:00 06/01/25 13:59 05/23/25 04:59 100 MLS/HR Morphine Sulfate (morPHINE 2MG SYG) 2 mg Q6H PRN IVP SEVERE PAIN (7-10) 05/22/25 11:30 05/29/25 11:29 Ondansetron HCl (zoFRAN 4MG INJ) 4 mg Q6H PRN IVP NAUSEA/VOMITING 05/22/25 11:30 06/21/25 11:29 Pantoprazole Sodium (PROTonix 40MG INJ) 40 mg DAILY IVP 05/23/25 09:00 06/22/25 08:59 05/23/25 08:34 40 MG Sodium Chloride 1,000 ml @ 80 mls/hr [id number] IV 05/22/25 11:30 06/21/25 11:29 05/22/25 20:44 80 MLS/HR DIAGNOSTICS / RADIOLOGY: [ ] ASSESSMENT: Symptomatic biliary colic, POA Rule out developing acute cholecystitis, POA Hyponatremia, mild, POA obesity, POA History of asthma, POA PLAN: admitted to medical floor, comfortably bed, alert oriented x3, getting IV fluids and IV antibiotics during my visit, afebrile, saturating normal on room air. No chest pain, shortness shortness for breath, getting good pain control with current medical management, no nausea, no vomiting, no discomfort. HIDA scan reviewed, discussed with the patient, finding consistent with a acute cholecystitis, General Surgical consultation requested, follow input recommendation. Follow a.m. labs. NEURO: Minimize central acting medications as possible. Fall Precautions. Well lighted room through the day and minimize interruptions through the night to prevent acute delirium. PULMONARY: Supplemental 02 as needed BiPAP as necessary, for respiratory distress Titrate Fio2 to keep Spo2 > or = 90% DuoNebs and CPT as needed IS hourly while awake for pulmonary hygiene prn Out of bed to chair as tolerated Maintain aspiration precautions at all times CARDIOVASCULAR: Follow hemodynamics. Vital signs per facility protocol GI & NUTRITION: Continue nutritional support Aspirations precautions Prokinetic agents and laxatives as needed KIDNEYS & ELECTROLYTES: Strict monitoring of intake and output Daily weights Avoid nephrotoxic agents Monitor electrolytes and replace as needed Goal urine output of 30mL/hr or 0.5mL/kg/hr Medications to be dosed according to renal function. Avoid contrast if possible ENDOCRINE: Maintain blood glucose between 100-180 at all times. Insulin sliding scale for blood glucose management Hypoglycemia and hyperglycemia protocol in place INFECTIOUS DISEASE: Trend temperature, WBC and procalcitonin level Follow cultures, deescalate antibiotics as soon as possible. Panculture if new onset fever HEMATOLOGY & COAGULATION: Monitor H&H. Keep Hgb > 7 Transfuse 1 unit of PRBC for Hgb < 7 Transfuse 1 pack of platelets of platelets < 20, 000 Watch for any signs and symptoms of bleeding SKIN: Pressure ulcer prevention per facility protocol Specialty mattress as needed ORTHO/REHAB Continue PT/OT PRN: MEDICATIONS Tylenol 650 mg po every 4 hrs for fever zofran 4 mg IV every 6 hrs for n/v Hydralazine 5 mg IV every 4 hrs systolic pressure > 160 bowel regiment: lactulose 20 gm PO BID PRN constipation Supportive measures: Continue GI and DVT prophylaxis Disposition: Pending improvement in clinical condition All questions answered time spent: > 35 min LINDA RUSSELL MD May 23, 2025 11:17
--- NOTE | 2025-05-23 14:52 | NUR ---
PATIENT TAKEN FOR PROCEDURE. NO SIGNS OF DISTRESS NOTED UPON DEPARTURE.
[2025-05-23] MEDS: INDOCYANINE GREEN 25 MG VIAL IJ ONE (15:00)
[2025-05-23] MEDS ORDERED: LIDOCAINE PF 100MG/5ML (2%) SYRINGE 5ML ONE (15:14)
[2025-05-23] MEDS ORDERED: MIDAZOLAM HCL 1 MG/ML 2ML VIAL ONE (15:15)
[2025-05-23] MEDS: SUGAMMADEX SODIUM 200 MG/2 ML VIAL IV ONE (15:19)
[2025-05-23] MEDS ORDERED: NEOSTIGMINE METHYLSULFATE 1MG/ML IV ONE (16:45)
[2025-05-23] MEDS ORDERED: GLYCOPYRROLATE 0.2 MG/ML 5 ML VIAL ONE (16:45)
[2025-05-23] MEDS ORDERED: PROMETHAZINE HCL 25 MG/ML 1ML AMPULE IM PRN (17:00)
--- NOTE | 2025-05-23 17:14 | OP ---
Operative Note: DATE OF PROCEDURE: 05/23/25 SURGEON: LUDIN SPANN MD BULKHEAD CARPENTER: [] ANESTHESIA: [] General ANESTHESIOLOGIST/TOOL AND CUTTER GRINDER: [] PREOPERATIVE DIAGNOSIS: [] Acute cholecystitis POSTOPERATIVE DIAGNOSIS: [] The same SYNOPSIS: [] PROCEDURE: [] Robotic cholecystectomy ESTIMATED BLOOD LOSS: [] Minimal INDICATIONS: [] DESCRIPTION OF PROCEDURE: []With the patient prepped and draped we did a supraumbilical incision. Using direct technique I placed a balloon trocar. Two da Keyur trochars were placed in each side of the abdomen under direct vision. A nother 8 mm DaivinOurCrowd trochar wasplaced in the right lateral side. I then went to the console and the robot was docked. I took all adhesions from the gallbladder and I started dissecting the triangle of Calot. There was significant inflammation in the area of triangle of Calot and I was able to identified the cystic duct and CBD.The cystic duct and the cystic artery were clearly identified and both were double clipped and divided. I took the gallbladder from below using cautery dissection. After the gallbladder was completely removed and adequate hemostasis was obtained I remove all the instruments from the abdomen. I undocked the robot and I came back to the bed side of the patient. I confirm hemostasis suction and irrigate and I placed the gallbladder in a bag. I injected 40 cc of Marcaine 0.25% as an abdominal tap block under direct vision. I injected 20 cc in each side of the abdomen. I took out all the trochars under direct vision and the gallbladder through the supraumbilical incision. I closed the fascia of the supraumbilical incision with a 0 Vicryl [id number]. All incisions were closed with staplers. The patient was transferred stable to the recovery room. LUDIN SPANN MD May 23, 2025 17:14
[2025-05-24] VITALS (11 sets, daily range): BP systolic 106–125; BP diastolic 61–72; PULSE 54–86; RESP 16–20; TEMP 98–98.4; O2SAT 97–99
[2025-05-24 03:29] LABS: IMMATURE GRANULOCYTE ABSOLUTE 0.05 K/uL (0-1); NUCLEATED RED BLOOD CELLS 0.0 % (0.0-0.19); PLATELET COUNT (AUTO) 225 K/uL (130-400); RED BLOOD CELL COUNT(AUTO) 4.02 MIL/uL (4.00-5.50); RED CELL DISTRIBUTION WIDTH 11.7 % (11.0-15.5); WHITE BLOOD COUNT (AUTO) 9.6 K/uL (4.8-10.8)
[2025-05-24 03:58] LABS: ASPARTATE AMINOTRANSFERASE 35.0 U/L (10-37); CREATININE 0.7 mg/dL (0.5-1.0); GLOMERULAR FILTR. RATE CALC 122.0 mL/min (>90); GLUCOSE,RANDOM 116.0 mg/dL (70-105); SODIUM SERUM 139.0 mmol/L (136-145); TOTAL PROTEIN, SERUM 6.7 g/dL (6.0-8.3); UREA NITROGEN, BLOOD 10.0 mg/dL (7-18)
--- NOTE | 2025-05-24 11:30 | PN ---
[facility] PROGRESS NOTE Date of Service: May 24, 2025 Time of Service: 11:29 SUBJECTIVE: 05/23 admitted to medical floor, comfortably bed, alert oriented x3, getting IV fluids and IV antibiotics during my visit, afebrile, saturating normal on room air. No chest pain, shortness shortness for breath, getting good pain control with current medical management, no nausea, no vomiting, no discomfort. HIDA scan reviewed, discussed with the patient, finding consistent with a acute cholecystitis, General Surgical consultation requested, follow input recommendation. Follow a.m. labs. 05/24 patient remains admitted to medical floor, status post cholecystectomy 05/23/2025, tolerated the procedure well, the time of my visit awake, following commands, IV fluids, IV antibiotics, feels weak, passing gas, no BM yet. We will continue the patient on IV fluids, IV antibiotics, replace electrolytes IV per protocol, follow a.m. labs, continue to follow surgical input and recommendation. Possible discharge home in the next 24 hours. REVIEW OF SYSTEMS CONSTITUTIONAL: Denies fevers, chills, or night sweats. No unintentional weight loss reported. NEUROLOGICAL: Denies headache, amaurosis fugax, motor weakness, sensory deficit, vertigo/spinning sensation, gait abnormalities, or tremors. ENT: No hearing loss, otalgia, otorrhea, rhinitis, rhinorrhea, hoarseness, or sore throat. CARDIOVASCULAR: Denies any exertional angina, dyspnea on exertion, orthopnea, paroxysmal nocturnal dyspnea, palpitations, life-threatening arrhythmias, claudication. PULMONARY: Denies any shortness of breath, cough, phlegm/sputum, hemoptysis, pleuritic chest pain. SLEEP: Denies morning headaches, daytime somnolence or napping. Denies difficulty falling asleep, staying asleep, waking from sleep. Denies knowledge of snoring. GASTROINTESTINAL: Nausea with severe right upper quadrant abdominal pain, denies diarrhea GENITOURINARY: Denies frequency, urgency, nocturia, hematuria or incontinence (Storage/Irritative symptoms.) Low urinary stream, straining to void, urinary intermittency or hesitancy, splitting of the voiding stream, terminal dribbling. ENDOCRINOLOGIC: Denies polyuria, polydipsia, polyphagia or heat/cold i ntolerances. HEMATOLOGIC: Denies thrombophilia/previous clots, or coagulopathy/bleeding disorders. ONCOLOGIC: Denies personal history of malignancy. DERMATOLOGIC: Denies rashes or pruritus. PSYCHIATRIC: Denies any suicidal or homicidal ideation. Denies hallucinations. PHYSICAL EXAM GENERAL APPEARANCE: The patient is awake, alert, and oriented, in no acute cardiopulmonary distress. NEUROLOGICAL: Cranial nerves II-XII grossly intact. Motor is 5/5 in bilateral upper and lower extremities proximal to distal. No sensory deficits. HEENT: Face is symmetric. Pupils are equal and reactive. Extraocular movements are intact. NECK: Supple. No JVD. No thyromegaly. No submental, submandibular, pre- /postauricular, occipital or supraclavicular lymphadenopathy. CHEST: Normal chest expansion. No Telemetry. LUNGS: Absence of any rales, rhonchi or any wheezing. CARDIOVASCULAR: Regular. S1 and S2 normal. No appreciable rubs, murmurs or gallops. ABDOMEN: Soft, nontender, and nondistended. There is no rebound, voluntary guarding, or rigidity. : Deferred. No Lawrence. EXTREMITIES: Non-edematous and not cyanotic. No clubbing. Good capillary refill. SKIN: No skin breakdown. Vital Signs (last 8hr) Date Time Temp Pulse Resp B/P (MAP) Pulse Ox O2 Delivery O2 Flow Rate FiO2 05/24/25 08:24 98.1 54 16 125/65 97 Room Air 05/24/25 06:42 86 18 N/A Room Air 05/24/25 06:40 86 18 05/24/25 04:00 98.2 68 18 106/61 95 Room Air LABS: Laboratory: Test 05/24/25 03:13 Range/Units White Blood Count 9.6 # 4.8-10.8 K/uL Red Blood Count 4.02 4.00-5.50 MIL/uL Hemoglobin 12.3 12.0-16.0 g/dL Hematocrit 37.2 36-48 % Mean Corpuscular Volume 92.5 79-99 fL Mean Corpuscular Hemoglobin 30.6 27.0-33.0 pg Mean Corpuscular Hemoglobin Concent 33.1 32.0-36.0 g/dL Red Cell Distribution Width 11.7 11.0-15.5 % Platelet Count 225 130-400 K/uL Mean Platelet Volume 10.3 7.5-10.5 fL Immature Granulocyte % (Auto) 0.5 0-1 % Neutrophils (%) (Auto) 87.3 H 40.0-77.0 % Lymphocytes (%) (Auto) 10.2 L 21.0-51.0 % Monocytes (%) (Auto) 1.9 L 3.0-13.0 % Eosinophils (%) (Auto) 0.0 0.0-8.0 % Basophils (%) (Auto) 0.1 0.0-5.0 % Neutrophils # (Auto) 8.4 H 1.8-7.7 K/uL Lymphocytes # (Auto) 1.0 1.0-4.8 K/uL Monocytes # (Auto) 0.2 0.1-1.0 K/uL Eosinophils # (Auto) 0.00 0.00-0.70 K/uL Basophils # (Auto) 0.01 0.00-0.20 K/uL Absolute Immature Granulocyte (auto 0.05 0-1 K/uL Nucleated Red Blood Cells 0.0 0.0-0.19 % Sodium Level 139 136-145 mmol/L Potassium Level 3.8 3.5-5.1 mmol/L Chloride Level 105 101-111 mmol/L Carbon Dioxide Level 24 21-32 mmol/L Blood Urea Nitrogen 10 7-18 mg/dL Creatinine 0.7 0.5-1.0 mg/dL Glomerular Filtration Rate Calc 122 >90 mL/min Random Glucose 116 H 70-105 mg/dL Total Calcium 8.0 L 8.5-10.1 mg/dL Total Bilirubin 0.4 # 0.2-1.0 mg/dL Aspartate Amino Transf (AST/SGOT) 35 10-37 U/L Alanine Aminotransferase (ALT/SGPT) 33 # 12-78 U/L Alkaline Phosphatase 62 50-136 U/L Total Protein 6.7 6.0-8.3 g/dL Albumin 3.0 L 3.5-5.0 g/dL Current Medications Medications (Trade) Dose Ordered Sig/Darin Route PRN Reason Start Time Stop Time Status Last Admin Dose Admin Acetaminophen (TYLenol 325MG TAB) 650 mg Q6H PRN PO MILD PAIN (1-3) 05/22/25 11:30 06/21/25 11:29 05/23/25 14:30 650 MG Albuterol (DUOneb) 1 udvial Q6H PRN IH SHORTNESS OF BREATH 05/22/25 11:30 06/21/25 11:29 Budesonide (Pulmicort 0.5 Mg/2ml) 0.5 mg BIDRESP IH 05/22/25 18:00 06/21/25 17:59 05/24/25 06:40 0.5 MG Ceftriaxone Sodium (ROCEphine 1G INJ) 1 gm Q12H IVPB 05/22/25 11:30 06/01/25 11:29 05/23/25 23:38 1 GM Fentanyl Citrate (FENTanyl CITRate PF 50 MCG/ 1 ML 2ML VIAL) 25 mcg Q5MIN PRN IVP PAIN LEVEL 7 TO 10 05/23/25 17:00 05/23/25 18:46 DC Ketorolac Tromethamine (toRADol) 15 mg Q12H PRN IV MODERATE PAIN (4-6) 05/22/25 11:30 05/24/25 11:30 05/23/25 21:55 15 MG Ketorolac Tromethamine (toRADol) 30 mg AD PRN IV PAIN LEVEL 1 TO 3 05/23/25 17:00 05/23/25 18:46 DC Metoclopramide HCl (regLAN 10MG IV) 10 mg AD PRN IVP NAUSEA/VOMITING 05/23/25 17:00 05/23/25 18:46 DC Metronidazole/ Sodium Chloride 100 ml @ 100 mls/hr Q8H6 IVPB 05/22/25 14:00 06/01/25 13:59 05/24/25 05:02 100 MLS/HR Morphine Sulfate (morPHINE 2MG SYG) 2 mg AD PRN IVP PAIN LEVEL 4 TO 6 05/23/25 17:00 05/23/25 18:46 DC 05/23/25 17:28 2 MG Morphine Sulfate (morPHINE 2MG SYG) 2 mg Q6H PRN IVP SEVERE PAIN (7-10) 05/22/25 11:30 05/24/25 02:49 DC Morphine Sulfate (morPHINE 4MG SYG) 2 mg Q6H PRN IVP SEVERE PAIN (7-10) 05/24/25 03:00 05/31/25 02:59 05/24/25 02:57 2 MG Naloxone HCl (NARcan 0.4mg/1 mL) 0.1 mg AD PRN IVP RESPIRATORY SYMPTOMS 05/23/25 23:55 05/23/25 18:46 DC Ondansetron HCl (zoFRAN 4MG INJ) 4 mg AD PRN IVP NAUSEA/VOMITING 05/23/25 17:00 05/23/25 18:46 DC Ondansetron HCl (zoFRAN 4MG INJ) 4 mg Q6H PRN IVP NAUSEA/VOMITING 05/22/25 11:30 06/21/25 11:29 05/23/25 20:07 4 MG Pantoprazole Sodium (PROTonix 40MG INJ) 40 mg DAILY IVP 05/23/25 09:00 06/22/25 08:59 05/24/25 08:20 40 MG Promethazine HCl (Phenergan) 25 mg AD PRN IM NAUSEA/VOMITING 05/23/25 17:00 05/23/25 18:46 DC Sodium Chloride 1,000 ml @ 80 mls/hr [id number] IV 05/22/25 11:30 06/21/25 11:29 05/24/25 04:57 80 MLS/HR DIAGNOSTICS / RADIOLOGY: [ ] ASSESSMENT: Sepsis, POA Acute cholecystitis, POA Status post robotic cholecystectomy 05/23/2025 Hyponatremia, mild, POA obesity, POA History of asthma, POA PLAN: patient remains admitted to medical floor, status post cholecystectomy 05/23/2025, tolerated the procedure well, the time of my visit awake, following commands, IV fluids, IV antibiotics, feels weak, passing gas, no BM yet. We will continue the patient on IV fluids, IV antibiotics, replace electrolytes IV per protocol, follow a.m. labs, continue to follow surgical input and recommendation. Possible discharge home in the next 24 hours. NEURO: Minimize central acting medications as possible. Fall Precautions. Well lighted room through the day and minimize interruptions through the night to prevent acute delirium. PULMONARY: Supplemental 02 as needed BiPAP as necessary, for respiratory distress Titrate Fio2 to keep Spo2 > or = 90% DuoNebs and CPT as needed IS hourly while awake for pulmonary hygiene prn Out of bed to chair as tolerated Maintain aspiration precautions at all times CARDIOVASCULAR: Follow hemodynamics. Vital signs per facility protocol GI & NUTRITION: Continue nutritional support Aspirations precautions Prokinetic agents and laxatives as needed KIDNEYS & ELECTROLYTES: Strict monitoring of intake and output Daily weights Avoid nephrotoxic agents Monitor electrolytes and replace as needed Goal urine output of 30mL/hr or 0.5mL/kg/hr Medications to be dosed according to renal function. Avoid contrast if possible ENDOCRINE: Maintain blood glucose between 100-180 at all times. Insulin sliding scale for blood glucose management Hypoglycemia and hyperglycemia protocol in place INFECTIOUS DISEASE: Trend temperature, WBC and procalcitonin level Follow cultures, deescalate antibiotics as soon as possible. Panculture if new onset fever HEMATOLOGY & COAGULATION: Monitor H&H. Keep Hgb > 7 Transfuse 1 unit of PRBC for Hgb < 7 Transfuse 1 pack of platelets of platelets < 20, 000 Watch for any signs and symptoms of bleeding SKIN: Pressure ulcer prevention per facility protocol Specialty mattress as needed ORTHO/REHAB Continue PT/OT PRN: MEDICATIONS Tylenol 650 mg po every 4 hrs for fever zofran 4 mg IV every 6 hrs for n/v Hydralazine 5 mg IV every 4 hrs systolic pressure > 160 bowel regiment: lactulose 20 gm PO BID PRN constipation Supportive measures: Continue GI and DVT prophylaxis Disposition: Pending improvement in clinical condition All questions answered time spent: > 35 min LINDA RUSSELL MD May 24, 2025 11:30
[2025-05-24] MEDS: PoTASSium chloRIDE 20MEQ ER 20 MEQ ERTAB PO ONE (13:58)
--- NOTE | 2025-05-24 17:24 | NUR ---
DCP Home Pt awake, alert, oriented x3 lives with spouse and her baby at their apartment. PCP is Tylor Paula. Pt does not have any DME, and anticipates discharge plan is for home.
--- NOTE | 2025-05-24 20:22 | PN ---
GENERAL SURGERY PROGRESS NOTE Date/Time Patient Seen: [05/24/2025 17:00 ] Problem List: [ 25-year-old female, postop day 1., laparoscopic cholecystectomy by Dr. Roa ] Interval History: [ Patient with expected soreness over surgical incisions Patient tolerating clear liquids without any complaints of nausea or vomiting Patient has been passing gas but no bowel movement yet Patient states she has not been ambulating today WBCs 9.6 H&H 12.3 and 37.2 Bilirubin 0.4 with normal LFTs lupus Current Medications Medications (Trade) Dose Ordered Sig/Darin Route Start Time Stop Time Status Last Admin Dose Admin Budesonide (Pulmicort 0.5 Mg/2ml) 0.5 mg BIDRESP IH 05/22/25 18:00 06/21/25 17:59 05/24/25 19:36 0.5 MG Ceftriaxone Sodium (ROCEphine 1G INJ) 1 gm Q12H IVPB 05/22/25 11:30 06/01/25 11:29 05/24/25 11:51 1 GM Metronidazole/ Sodium Chloride 100 ml @ 100 mls/hr Q8H6 IVPB 05/22/25 14:00 06/01/25 13:59 05/24/25 13:58 100 MLS/HR Pantoprazole Sodium (PROTonix 40MG INJ) 40 mg DAILY IVP 05/23/25 09:00 06/22/25 08:59 05/24/25 08:20 40 MG Sodium Chloride 1,000 ml @ 80 mls/hr [id number] IV 05/22/25 11:30 06/21/25 11:29 05/24/25 14:05 80 MLS/HR Physical Examination: GENERAL: [No acute distress, female, comfortably resting in bed, at bedside.] HEAD: [Normocephalic.] EYES: [Nonicteric sclera.] ENT: [Hearing grossly intact.] NECK: [Supple.] LUNGS: [Clear breath sounds bilaterally.] HEART: [Normal rate and rhythm.] VASC: [Peripheral pulses +2 bilaterally.] ABD: [Bowel sounds normal, soft, surgical dressings dry and intact, no guarding or rigidity.] : [Not examined] EXT: [No edema.] SKIN: [No rashes or lesions noted.] NEURO: [Awake, alert, and oriented x3. No focal sensory or strength deficits noted.] Vital Signs (last 8hr) Date Time Temp Pulse Resp B/P (MAP) Pulse Ox O2 Delivery O2 Flow Rate FiO2 05/24/25 19:38 69 18 05/24/25 16:00 98.4 69 16 116/71 95 Room Air 21 Laboratory: [ ] Hematology Labs: Test 05/24/25 03:13 Range/Units White Blood Count 9.6 # 4.8-10.8 K/uL Red Blood Count 4.02 4.00-5.50 MIL/uL Hemoglobin 12.3 12.0-16.0 g/dL Hematocrit 37.2 36-48 % Mean Corpuscular Volume 92.5 79-99 fL Mean Corpuscular Hemoglobin 30.6 27.0-33.0 pg Mean Corpuscular Hemoglobin Concent 33.1 32.0-36.0 g/dL Red Cell Distribution Width 11.7 11.0-15.5 % Platelet Count 225 130-400 K/uL Mean Platelet Volume 10.3 7.5-10.5 fL Immature Granulocyte % (Auto) 0.5 0-1 % Neutrophils (%) (Auto) 87.3 H 40.0-77.0 % Lymphocytes (%) (Auto) 10.2 L 21.0-51.0 % Monocytes (%) (Auto) 1.9 L 3.0-13.0 % Eosinophils (%) (Auto) 0.0 0.0-8.0 % Basophils (%) (Auto) 0.1 0.0-5.0 % Neutrophils # (Auto) 8.4 H 1.8-7.7 K/uL Lymphocytes # (Auto) 1.0 1.0-4.8 K/uL Monocytes # (Auto) 0.2 0.1-1.0 K/uL Eosinophils # (Auto) 0.00 0.00-0.70 K/uL Basophils # (Auto) 0.01 0.00-0.20 K/uL Absolute Immature Granulocyte (auto 0.05 0-1 K/uL Nucleated Red Blood Cells 0.0 0.0-0.19 % Chemistry Labs: Test 05/24/25 03:13 Range/Units Sodium Level 139 136-145 mmol/L Potassium Level 3.8 3.5-5.1 mmol/L Chloride Level 105 101-111 mmol/L Carbon Dioxide Level 24 21-32 mmol/L Blood Urea Nitrogen 10 7-18 mg/dL Creatinine 0.7 0.5-1.0 mg/dL Glomerular Filtration Rate Calc 122 >90 mL/min Random Glucose 116 H 70-105 mg/dL Total Calcium 8.0 L 8.5-10.1 mg/dL Total Bilirubin 0.4 # 0.2-1.0 mg/dL Aspartate Amino Transf (AST/SGOT) 35 10-37 U/L Alanine Aminotransferase (ALT/SGPT) 33 # 12-78 U/L Alkaline Phosphatase 62 50-136 U/L Total Protein 6.7 6.0-8.3 g/dL Albumin 3.0 L 3.5-5.0 g/dL Diagnostics / Radiology: [Copy/Paste Echos/Imaging Report here] Impression and Plan: [25 year old female postop day 1., laparoscopic cholecystectomy by Dr. Roa Patient encouraged to start ambulating more Continue with clear liquid diet today then may advance diet tomorrow Repeat labs in a.m. Continue with IV fluids and antibiotics Surgical team will continue to follow Dr. Roa updated on patient's status Surgical case has been discussed with my supervising physician in the above plan was formulated and agreed upon We appreciate the hospitalist team for us to participate in patient's care. Greater than 45 minutes of time spent patient, reviewing chart, working on documentation ] ATTESTATION BY PHYSICIAN I have seen and examined the patient. I reviewed the documentation, medical decision making, and treatment plan as noted by the mid-level provider above. I agree with the findings and plan of care. MD JOHN MAGALLANES LETICIA A [facility] May 24, 2025 20:22
[2025-05-25] VITALS (7 sets, daily range): BP systolic 105–112; BP diastolic 68–74; PULSE 53–75; RESP 16–20; TEMP 98–98.6; O2SAT 98–100
[2025-05-25 04:51] LABS: IMMATURE GRANULOCYTE ABSOLUTE 0.01 K/uL (0-1); NUCLEATED RED BLOOD CELLS 0.0 % (0.0-0.19); PLATELET COUNT (AUTO) 184 K/uL (130-400); RED BLOOD CELL COUNT(AUTO) 3.41 MIL/uL (4.00-5.50); RED CELL DISTRIBUTION WIDTH 11.9 % (11.0-15.5); WHITE BLOOD COUNT (AUTO) 7.3 K/uL (4.8-10.8)
[2025-05-25 05:03] LABS: ASPARTATE AMINOTRANSFERASE 22.0 U/L (10-37); CREATININE 0.7 mg/dL (0.5-1.0); GLOMERULAR FILTR. RATE CALC 122.0 mL/min (>90); GLUCOSE,RANDOM 92.0 mg/dL (70-105); SODIUM SERUM 140.0 mmol/L (136-145); TOTAL PROTEIN, SERUM 5.8 g/dL (6.0-8.3); UREA NITROGEN, BLOOD 9.0 mg/dL (7-18)
[2025-05-25] MEDS ORDERED: ALBUTEROL 0.083% 2.5 MG/3 ML INH IH ONE (06:28)
[2025-05-25 12:03] LABS: NUCLEATED RED BLOOD CELLS 0.0 % (0.0-0.19); PLATELET COUNT (AUTO) 195.0 K/uL (130-400); RED BLOOD CELL COUNT(AUTO) 3.63 MIL/uL (4.00-5.50); RED CELL DISTRIBUTION WIDTH 12.1 % (11.0-15.5); WHITE BLOOD COUNT (AUTO) 6.5 K/uL (4.8-10.8)
--- NOTE | 2025-05-25 12:44 | DS ---
Discharge Summary Hospital Course Summary: The patient admitted to hospital May 22, 2025 with the following history of the present illness: his is a 25-year-old female with underlying history of obesity, asthma, [place] to the ER for further evaluation of severe right upper quadrant abdominal pain. Symptoms have been ongoing since 10:00 p.m. last night and has been progressive in intensity. Pain was 10/10 in severity. Patient initially thought that she was having asthma attack from the pain but pain was not improving with albuterol inhaler prompting her to come to the ER for further evaluation. She does report having intermittent episodes of right-sided upper quadrant pain about two to 3 times a week over the last several months. She was seen in the ER on 03/2025 for gastritis. She reports that in 2022, he used to be a close to 220 lb in since then, she has been running to assist with weight loss, currently she states that she weighs close to 170 lb. She denies any cough, wheezing or significant congestion. She denies having previous history of asthma exacerbation requiring hospitalization. She denies any prior cardiac or GI comorbidities. On presentation to the hospital, patient was noted to be afebrile with T-max of 97.2 F, heart rate of 70, blood pressure 129/73. Labs on presentation showed WBC count of 6800, hemoglobin 14.8, platelet count of 415613. BMP showed sodium of 135, potassium 3.6, chloride of 100, BUN of 16, creatinine of 0.7, liver enzymes were noted to be normal. Right upper quadrant ultrasound showed findings of cholelithiasis with mildly thickened gallbladder concerning for possible acute cholecystitis. Chest x-ray showed no infiltrates. Patient will be admitted to the hospitalist service for further management of symptomatic biliary colic with concerns for developing acute cholecystitis. Patient will be kept on bowel rest, she will be started on IV fluids, she will be started on IV antibiotics. Consultation with Dr. Roa surgery has already been obtained from the ER, we will be consulting on this patient's case. HOSPITAL COURSE 05/23 admitted to medical floor, comfortably bed, alert oriented x3, getting IV fluids and IV antibiotics during my visit, afebrile, saturating normal on room air. No chest pain, shortness shortness for breath, getting good pain control with current medical management, no nausea, no vomiting, no discomfort. HIDA scan reviewed, discussed with the patient, finding consistent with a acute chol ecystitis, General Surgical consultation requested, follow input recommendation. Follow a.m. labs. 05/24 patient remains admitted to medical floor, status post cholecystectomy 05/23/2025, tolerated the procedure well, the time of my visit awake, following commands, IV fluids, IV antibiotics, feels weak, passing gas, no BM yet. We will continue the patient on IV fluids, IV antibiotics, replace electrolytes IV per protocol, follow a.m. labs, continue to follow surgical input and recommendation. Possible discharge home in the next 24 hours. 05/25 today the patient is alert oriented x3, hemodynamically stable, afebrile, saturating normal on room air, no nausea, no vomiting, no abdominal discomfort, passing gas, moving bowel. Track Service Worker(s): Status post robotic cholecystectomy 05/23/2025 Assessment/Plan: Final diagnosis Sepsis, POA Acute cholecystitis, POA Status post robotic cholecystectomy 05/23/2025 Hyponatremia, mild, POA obesity, POA History of asthma, POA Discharge Instructions: The patient to be discharged home today, to follow up with the General surgery as an outpatient. Patient advised to return to the hospital if condition changes. Patient agreed with the plan and understood the information provided. Home Medications: Discontinued Scripts Nitrofurantoin Macrocrystal (Nitrofurantoin) 100 Mg Capsule, 1 CAP PO BID for 7 Days, #14 CAP 0 Refills Prov:BONNY HUBER MD 03/20/25 Nitrofurantoin Monohyd/M-Cryst (Macrobid 100 mg Capsule) 100 Mg Capsule, 1 CAP PO BID for 5 Days, #10 CAP 0 Refills Prov:GIULIANA AKERS CLINICAL LABORATORY MANAGER 01/04/25 Miconazole Nitrate (Monistat 3 Vag Supp) 200 Mg Supp, 200 MG VG DAILY for 3 Days, #3 SUPP Prov:GIULIANA AKERS CLINICAL LABORATORY MANAGER 01/04/25 Diphenhydramine HCl (Benadryl) 50 Mg Cap, 50 MG PO Q6H for itching/rash for 5 Days, #20 CAP 0 Refills Prov:TABITHA WEST CNP 05/09/24 Time spent arranging discharge: 31-60 minutes LINDA RUSSELL MD May 25, 2025 12:44
--- NOTE | 2025-05-25 18:30 | NUR ---
PT sitting in bed w/ eyes open A&Ox4 able to make needs known, family @ bedside. Discharge instructions given written and verbally to PT & family in [place] language. PT and family verbally acknowledged understanding. I.V. removed intact w/o complications. PT escorted to POV via WC by DIRECTOR MUSIC w/o complications.
== END 2025-05-25 18:45 | disposition home or self-care (01) | DRG 854 ==
LOC: EDH 08:03 → EDHIP 08:04 → UNDOADMIN 11:16 → 4AH 18:20 → EDHIP 18:20
PROVIDERS: ADMIT Internal Medicine; ATTEND Internal Medicine
PROC: 8E0W4CZ Robotic Assisted Procedure of Trunk Region, Percutaneous Endoscopic Approach (ICD-10-PCS; 2025-05-23)
PROC: 0FT44ZZ Resection of Gallbladder, Percutaneous Endoscopic Approach (ICD-10-PCS; principal; 2025-05-23 13:45)
DX: A41.9 Sepsis, unspecified organism (principal); E87.1 Hypo-osmolality and hyponatremia; K80.00 Calculus of gallbladder with acute cholecystitis without obstruction; N39.0 Urinary tract infection, site not specified; J45.909 Unspecified asthma, uncomplicated; E66.9 Obesity, unspecified; K76.0 Fatty (change of) liver, not elsewhere classified; K82.8 Other specified diseases of gallbladder; F41.9 Anxiety disorder, unspecified; Z68.35 Body mass index [BMI] 35.0-35.9, adult
CPT/HCPCS: 36415; 71045; 76705; 78226; 80053; 81001; 81025; 83690; 84484; 85025; 85027; 85651; 86140; 87086; 93005; 94640; 94664; 96374; 96375; 99285; A9537; G0378; J0696; J1100; J1885; J2003; J2250; J2270; J2405; J2470; J2543; J2704; J2710; J3010; J3490; J7030; J7120; A4930; C1769; J0665